=== PATIENT | male | born 1970 | race Caucasian/White ===

== ENCOUNTER 2022-12-11 19:13 | Emergency (ER) | payer BC, SELFPAY ==
--- NOTE | ~2022-12-11 | CT_ITS ---
EXAMINATION: CT abdomen pelvis wo con DATE: 12/11/2022 21:37 INDICATION: Eval kidney stone TECHNIQUE: Computed tomography (CT) of the abdomen and pelvis was performed without intravenous contr ast. Automated exposure control and iterative reconstruction technique were employed. The dose-length product was 644.94 mGy-cm. COMPARISON: None. FINDINGS: Lower thorax: Minimal bibasilar scar/atelectasis. Coronary artery calcifications. Liver: Enlarged. Biliary/Gallbladder: Gallbladder is normal. No bile duct dilation. Pancreas: No mass or duct dilation. Spleen: Normal. Adrenals:No mass. Kidneys: No calculi. No suspicious mass. Mild bilateral perinephric stranding, slightly greater on th e left. Mild left caliectasis, pelviectasis, and ureterectasis with mild periureteral stranding. GI tract: No small or large bowel dilation. Normal appendix. Diverticulosis without diverticulitis. Mesentery/Peritoneum: No ascites, mass, or free air. Retroperitoneum: No mass. Atherosclerotic abdominal aortic and/or arterial calcifications. Pelvis: Partially distended urinary bladder with wall thickening. Mild prostatomegaly and calcificati on. No distal ureteral or bladder calcifications detected. Soft Tissues: Soft tissues and body wall unremarkable. Bones: No acute osseous finding. IMPRESSION: 1. Hepatomegaly. 2. No CT evidence of nephrolithiasis. 3. Mild left perinephric and periureteral stranding, with mild left hydronephrosis. No obstructing ma ss or calcification detected. Consider ascending infection in the differential. 4. Bladder wall thickening, may be secondary to inadequate distention or cystitis. Reviewed, dictated and finalized at location K. IMPRESSION: 1. Hepatomegaly. 2. No CT evidence of nephrolithiasis. 3. Mild left perinephric and periureteral stranding, with mild left hydronephro sis. No obstructing mass or calcification detected. Consider ascending infectio n in the differential. 4. Bladder wall thickening, may be secondary to inadequate distention or cystit is.
[2022-12-11 19:16] VITALS: BP 145/76; PULSE 73; RESP 15; TEMP 36.6; O2SAT 100
--- NOTE | 2022-12-11 21:19 | ED.GENADULT ---
HPI - General Adult General Chief complaint: Back Pain/Injury Stated complaint: kidney stone? Time Seen by Provider: 12/11/22 20:04 History of Present Illness HPI narrative: This is a 52-year-old male presenting ED with a chief complaint of back pain x2 weeks. Patient says he has been having a pain in his left flank that radiates into his abdomen, crampy, 10 out 10 intensity and comes and goes. He has never experienced pain like this before there are no exacerbating relieving factors. He notes that his urine is T like and he has the urge to urinate but feels like he is not able to complete his void. He has had some diaphoresis and fevers at home. He was seen by his primary care physician is treating him for UTI. He is here to be evaluated for kidney stone. Related Data Allergies Allergy/AdvReac Type Severity Reaction Status Date / Time No Known Allergies Allergy Verified 12/11/22 19:18 [facility] Past Medical History Medical History (Updated 12/11/22 @ 23:19 by Cruz Anderson MD) Gout Pyelonephritis Exam Narrative: APPEARANCE: No apparent distress. Head: atraumatic. EYES: EOMI, NOSE: Atraumatic NECK: Trachea midline RESPIRATORY: No increased rate of breathing clear to auscultation CARDIOVASCULAR: RRR, ABDOMINAL: Abdomen is soft nontender no guarding rebound, no CVA tenderness MUSCULOSKELETAl: No obvious deformities NEURO: Alert. Moving 4/4 extremities SKIN:: Warm, dry. Normal color PSYCHIATRIC: Normal affect Course Vital Signs Vital signs: Vital Signs Temperature 98 F 12/11/22 19:16 Pulse Rate 73 12/11/22 19:16 Respiratory Rate 15 12/11/22 19:16 Blood Pressure 145/76 H 12/11/22 19:16 Pulse Oximetry 100 12/11/22 19:16 Oxygen Delivery Room Air 12/11/22 19:16 Temperature 98 F 12/11/22 19:16 Pulse Rate 73 12/11/22 19:16 Respiratory Rate 15 12/11/22 19:16 Blood Pressure 145/76 H 12/11/22 19:16 Pulse Oximetry 100 12/11/22 19:16 Oxygen Delivery Room Air 12/11/22 19:16 Medical Decision Making [facility] Narrative Medical decision making narrative: -Presentation: 52-year-old male presenting with a week and half of flank pain. He has had urinary symptoms and fevers/diaphoresis at home. He was seen his primary care physician is treating for UTI but he was sent here to be evaluated for kidney stones. 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 Metabolic panel normal. Urine indicative of infection. CT abdomen pelvis showed findings concerning for pyelonephritis but no kidney stones. Dx tests considered but not ordered: None -Procedures: none -Interventions: Toradol, Tylenol, 2 L normal saline, Cipro 500 mg -Shared decision making / Disposition: patient's workup is significant for pyelonephritis. He was fluid resuscitated and given pain control which improved his symptoms. He has been taking Cipro which is an appropriate antibiotic. I am going to extend the duration of his medications. Upon re-evaluation his vital signs are stable and he is well appearing. He is young with no significant medical comorbidities is good candidate for outpatient therapy. He will be given return precautions. Patient discharged with primary care follow-up -RX Cipro 500 mg bid x7 days, motrin, tylenol, oxycodone Vital Signs Vital Signs: Vital Signs Temperature 98 F 12/11/22 19:16 Pulse Rate 73 12/11/22 19:16 Respiratory Rate 15 12/11/22 19:16 Blood Pressure 145/76 H 12/11/22 19:16 Pulse Oximetry 100 12/11/22 19:16 Oxygen Delivery Room Air 12/11/22 19:16 Temperature 98 F 12/11/22 19:16 Pul
[2022-12-11 21:41] LABS: Appearance Urine Cloudy (Clear); Bacteria Urine None Seen /hpf; Bilirubin Urine Negative (Negative); Blood Urine 2+ (Negative); Color Urine Yellow (Yellow); Glucose Urine UA Negative (Negative); Ketones Urine Negative (Negative); Leukocyte Esterase Ur 2+ LEU/UL (Negative); Nitrate Urine Negative (Negative); Non Pathogenic Casts 0-2; Protein Urine 2+ mg/dL (Negative); Specific Grav Ur 1.009 (1.001-1.035); Squamous Epithelial Cell Urine None seen /hpf (Few); Urobilinogen Urine 0.2 mg/dL (<2.0); WBC Urine >100 /hpf; pH Urine 5.5 (5.0-9.0)
[2022-12-11 21:43] LABS: Add Urine Microscopic? YES
[2022-12-11] MEDS: KETOROLAC 15 MG/ML VIAL (*BKC) IV PUSH (21:46)
[2022-12-11] MEDS: SODIUM CHLORIDE 0.9% IV 2,000 ML 999 ML IV CONT (21:46)
[2022-12-11] MEDS: ACETAMINOPHEN 500 MG TABLET 1000 MG PO (21:46)
[2022-12-11 21:56] LABS: Basophils Absolute Auto 0.1 K/mm3 (0.0-0.1); Basophils Percent Auto 0.3 % (0.2-1.2); Eosinophils Absolute Auto 0.1 K/mm3 (0-0.3); Eosinophils Percent Auto 0.6 % (0-4.4); Hematocrit 41.8 % (42.0-52.0); Hemoglobin 13.6 g/dL (14.0-18.0); Immature Granulocyte Absolute 0.07 K/mm3 (0.00-0.031); Immature Granulocyte Percent A 0.5 % (0-0.5); Lymphocytes Absolute Auto 2.39 K/mm3 (0.9-3.2); Lymphocytes Percent Auto 15.8 % (18.3-44.2); Mean Corpuscular HGB Conc 32.5 g/dl (32-36); Mean Corpuscular Hemoglobin 28.2 pg (26-34); Mean Corpuscular Volume 86.5 fl (80-100); Mean Platelet Volume 9.1 fl (7.4-10.4); Monocytes Absolute Auto 0.8 K/mm3 (0.1-0.6); Neutrophils Absolute Auto 11.7 K/mm3 (1.3-6.7); Neutrophils Percent Auto 77.8 % (45.5-73.1); Platelet Count Result 336 k/mm3 (150-375); Red Blood Count 4.83 M/mm3 (4.6-6.20); Red Cell Distribution Width 13.5 % (11.5-14.5); White Blood Count 15.1 K/mm3 (4.5-10.0)
[2022-12-11 22:57] LABS: Alanine Aminotransferase 28 U/L (6-50); Albumin Level 3.4 g/dL (3.5-5.1); Alkaline Phosphatase 89 U/L (38-126); Anion Gap 6 mmol/L (8-16); Aspartate Amino Transferase 25 U/L (17-59); Bilirubin,Total 0.3 mg/dL (0.2-1.3); Blood Urea Nitrogen 12 mg/dL (9-20); Calcium 8.2 mg/dL (8.4-10.2); Carbon Dioxide 27 mmol/L (22-30); Chloride 106 mmol/L (98-107); Creatine Kinase 106 U/L (55-170); Estimated CRCL calculation 76 ml/min; Estimated Glomerular Filt Rate > 60; Glucose 105 mg/dL (65-110); Lipase 37 U/L (23-300); Potassium 3.4 mmol/L (3.4-5.0); Sodium 139 mmol/L (137-145)
[2022-12-11] MEDS: CIPROFLOXACIN 500 MG TAB PO (23:27)
== END 2022-12-11 23:40 | disposition home or self-care (01) ==
PROVIDERS: Emergency Provider Emergency Medicine; PCP Family Medicine Sports Medicine
DX: N10 Acute pyelonephritis (principal); M10.9 Gout, unspecified; D72.829 Elevated white blood cell count, unspecified
CPT/HCPCS: 36415; 74176; 80053; 81001; 82550; 83690; 85025; 87086; 96361; 96374; 99284; A9270; J1885; J7030

== ENCOUNTER 2023-06-09 14:31 | Inpatient (IN) | payer BC, SELFPAY ==
[2023-06-09] VITALS (31 sets, daily range): BP systolic 125–154; BP diastolic 75–93; PULSE 66–89; RESP 14–25; TEMP 36–37; O2SAT 94–100; BMI 30.6
--- NOTE | ~2023-06-09 | XR_ITS ---
EXAMINATION: XR chest 2V DATE: 06/09/2023 15:05 INDICATION: Chest pain. TECHNIQUE: Frontal and lateral views of the chest were obtained. COMPARISON: CT abdomen and pelvis 12/11/2022 FINDINGS: There is no pneumonia, pleural effusion, or pneumothorax. The heart size is normal. IMPRESSION: 1. No acute cardiopulmonary disease. Reviewed, dictated and finalized at location E. R SERVICE REPRESENTATIVE
--- NOTE | 2023-06-09 14:34 | ECG_ITS ---
Measurements Intervals [place] Rate: 78 P: 42 TX: 166 QRS: 42 QRSD: 105 T: 61 QT: 332 QTc: 380 Interpretive Statements SINUS RHYTHM NONSPECIFIC ST & T-WAVE ABNORMALITY NO PREVIOUS ECG AVAILABLE FOR COMPARISON Electronically Signed On 06-09-2023 15:06:10 MALARIOLOGIST by Estrada Iqbal M.D.
--- NOTE | 2023-06-09 14:37 | ED.CHESTPAIN ---
HPI - Chest Pain General Chief Complaint: Chest Pain Stated Complaint: chest pain with exertion Time Seen by Provider: 06/09/23 14:35 Source: patient Mode of arrival: ambulatory Limitations: no limitations History of Present Illness HPI narrative: Leighton is a 53-year-old male patient presenting to the ER today with complaints of chest pain over the last 2-3 days upon exertion. He reports when he is lying flat not do anything he does not have any chest pain. Rates the pain a pressure like sensation in the middle of his chest-states it feels like a brick hit him. Pain has been radiating into bilateral arms. Denies radiation into the jaw. He denies any associated shortness of breath, nausea, vomiting, diaphoresis. No cardiac history. He is a 1 pack-a-day cigarette smoker since he was a child. Related Data Home Medications Medication Instructions Recorded Confirmed No Home Medications 06/09/23 06/09/23 Allergies Allergy/AdvReac Type Severity Reaction Status Date / Time No Known Allergies Allergy Verified 06/09/23 14:38 Review of Systems Review of Systems: Pertinent positives per HPI. Patient denies any fever, chills, rash, headache, visual changes, dizziness, cough, runny nose, sore throat, shortness of breath,palpitations, nausea, vomiting, diarrhea, constipation, abdominal pain, or any urinary issues. [facility] Past Medical History Medical History Gout Pyelonephritis Comments At the time of my signature, I reviewed and agree with the nursing past medical, surgical, social, and family history. There is no relevant family history pertinent to the patient complaint. Exam Narrative: General: Well-developed, well nourished, in no apparent distress Head: Normocephalic, atraumatic. Cardio: Regular rate and rhythm, s1 and s2 normal, no murmur appreciated. Chest wall: Nontender to palpation, even rise and fall of the chest wall, no deformity Resp: Clear to auscultation bilaterally, no rhonchi, rales, wheezing or rubs. Extremities: No deformity, no edema, no cyanosis, capillary refill less than 2 seconds, peripheral pulses palpable and strong. Integumentary: [place], warm, and dry, intact without lesion, no rashes. Course Course Emergency Course: Portions of this record may have been created with voice recognition software. Vital Signs Vital signs: Vital signs reviewed MDM - Chest Pain MDM Narrative Medical decision making narrative: At the time of visit patient is resting comfortably on the exam table. Denies any chest pain currently as he is lying on the stretcher. EKG, labs, and chest x-ray completed, Patient appears to be nontoxic. EKG shows sinus rhythm with heart rate of 70 beats per minute with nonspecific ST-T wave changes. Chest x-ray is negative for any acute cardiopulmonary disease, labs show white blood cell count of 8.4 with an H&H of 13.5 and 42.4 platelet count is 276. PT INR and APTT 12., 0.9, 30.5 2nd with a D-dimer of 0.37. CMP unremarkable, initial troponin was elevated at 0.120. Lipase is normal. Repeat EKG was performed and shows no changes from previous EKG. Patient is denying any pain with resting on the stretcher this time. Contacted Dr. [id number] accepts patient for consult and would like to have the patient started on heparin drip. Heparin 4000 units IV push with heparin drip ordered per non-STEMI protocol. Contacted hospitalist and Elissa accepts patient for admission. Admission was discussed with patient and he agrees with admission. Patient to be NPO at MT for cath Differential Diagnosis Differential diagnosis: Likely stable angina, unstable angina pectoris, atypical chest pain, st elevation myocardial infarction, costochondritis and chest pain Discharge Plan Discharge Patient Disposition: Still a Patient Instructions: Antibiotic Form Prescriptions: No Action No Home Medications
[2023-06-09] MEDS: ASPIRIN 81 MG CHEWABLE TABLET 324 MG PO (14:52)
[2023-06-09 14:57] LABS: Basophils Percent Auto 0.5 % (0.2-1.2); Eosinophils Absolute Auto 0.1 K/mm3 (0-0.3); Eosinophils Percent Auto 1.5 % (0-4.4); Hematocrit 42.4 % (42.0-52.0); Hemoglobin 13.5 g/dL (14.0-18.0); Immature Granulocyte Absolute 0.04 K/mm3 (0.00-0.031); Immature Granulocyte Percent A 0.5 % (0-0.5); Lymphocytes Absolute Auto 2.34 K/mm3 (0.9-3.2); Lymphocytes Percent Auto 27.8 % (18.3-44.2); Mean Corpuscular HGB Conc 31.8 g/dl (32-36); Mean Corpuscular Hemoglobin 27.3 pg (26-34); Mean Corpuscular Volume 85.7 fl (80-100); Monocytes Absolute Auto 0.7 K/mm3 (0.1-0.6); Monocytes Percent Auto 8.4 % (2.6-8.5); Neutrophils Absolute Auto 5.2 K/mm3 (1.3-6.7); Neutrophils Percent Auto 61.3 % (45.5-73.1); Platelet Count Result 276 k/mm3 (150-375); Red Blood Count 4.95 M/mm3 (4.6-6.20); Red Cell Distribution Width 13.5 % (11.5-14.5); White Blood Count 8.4 K/mm3 (4.5-10.0)
[2023-06-09 15:05] LABS: INR 0.9; Prothrombin Time 12.7 Seconds (11.1-14.7)
[2023-06-09 15:06] LABS: Alanine Aminotransferase 19 U/L (6-50); Albumin Level 4.3 g/dL (3.5-5.1); Alkaline Phosphatase 96 U/L (38-126); Anion Gap 10 mmol/L (8-16); Aspartate Amino Transferase 22 U/L (17-59); Bilirubin,Total 0.3 mg/dL (0.2-1.3); Blood Urea Nitrogen 13 mg/dL (9-20); Calcium 9.4 mg/dL (8.4-10.2); Carbon Dioxide 25 mmol/L (22-30); Chloride 105 mmol/L (98-107); Estimated CRCL calculation 94 ml/min; Estimated Glomerular Filt Rate > 60; Glucose 95 mg/dL (65-110); Lipase 74 U/L (23-300); Partial Thromboplastin Time 30.5 SECONDS (22.3-36.8); Potassium 3.7 mmol/L (3.4-5.0); Sodium 140 mmol/L (137-145)
--- NOTE | 2023-06-09 15:22 | ECG_ITS ---
Measurements Intervals [place] Rate: 73 P: 44 SD: 169 QRS: 38 QRSD: 106 T: 50 QT: 331 QTc: 365 Interpretive Statements SINUS RHYTHM NONSPECIFIC ST & T-WAVE ABNORMALITY BORDERLINE ECG COMPARED TO ECG 06/09/2023 14:39:21 NO SIGNIFICANT CHANGES Electronically Signed On 06-10-2023 15:28:52 AUTOMATION TECH by Matthew Lopez M.D.
--- NOTE | 2023-06-09 15:24 | ECG_ITS ---
Measurements Intervals [place] Rate: 71 P: 45 MT: 169 QRS: 47 QRSD: 117 T: 10 QT: 362 QTc: 394 Interpretive Statements SINUS RHYTHM MODERATE INTRAVENTRICULAR CONDUCTION DELAY [110+ ms QRS DURATION] NONSPECIFIC ST & T-WAVE ABNORMALITY ABNORMAL ECG COMPARED TO ECG 06/09/2023 17:36:46 INTRAVENTRICULAR CONDUCTION DELAY NOW PRESENT T-WAVE ABNORMALITY NOW PRESENT Electronically Signed On 06-10-2023 15:37:38 PRIVATE WATCHMAN by Matthew Lopez M.D.
[2023-06-09 15:29] LABS: D Dimer 0.37 ug/mL (<0.48)
[2023-06-09 16:06] LABS: NT Pro B Type Natriuretic Pept 114 pg/mL (19.9-100)
[2023-06-09] MEDS: HEPARIN SOD/D5W 100 UNITS/ML 25,000 UNITS/250 ML BAG 12.31 UNITS IV CONT (16:41)
[2023-06-09] MEDS: HEPARIN SODIUM 5,000 UNITS/ML VIAL 4000 UNITS IV PUSH ×2 (16:41→23:52)
[2023-06-09] MEDS: HEPARIN SOD/D5W 100 UNITS/ML 25,000 UNITS/250 ML BAG 10 UNITS IV CONT (17:01)
--- NOTE | 2023-06-09 17:07 | PM.CNCAR ---
Assessment and Plan Assessment and plan (1) Non-ST elevation CT (NSTEMI): Code(s): I21.4 - Non-ST elevation (NSTEMI) myocardial infarction Status: Acute Assessment and Plan: First Troponin .12. Got aspirin and start heparin drip in ED. Start Atorvastatin 80 mg daily and Metoprolol Tartate 12.5 mg BID. Obtain echo in AM. Obtain Lipid panel. Trend troponin. Discuss risks/benefits/alternative to LHC and he is agreeable to it. Will consult HCG for procedure in AM. Keep NPO after midnight for LHC. (2) Tobacco abuse: Code(s): Z72.0 - Tobacco use Status: Acute Assessment and Plan: Counseled regarding smoking cessation. History of Present Illness History of Present Illness Consult date/time: 06/09/23 17:07 Reason For Visit: chest pain with exertion Narrative: 53 yr old man presents to ER with chest pain. He has a history of smoking. Reports that in last 3 days he noted exertional chest pressure and sob after walking 1/2 block or less when normally he can walk much more. While lying in bed he has no chest pains. He smokes 1 ppd. Denies orthopnea, PND, edema, dizziness, palpitations. Review of Systems Review of Systems: All systems reviewed & are unremarkable except as noted in HPI and below Constitutional: Constitutional: Reports as per HPI, Denies chills and Denies fever(s) Cardiovascular: Cardiovascular: Reports as per HPI, Reports chest pain and Denies irregular heart rhythm Respiratory: Respiratory: Reports as per HPI and Reports dyspnea Gastrointestinal: Gastrointestinal: Reports as per HPI and Denies abdominal pain Genitourinary: Genitourinary: Reports as per HPI and Denies dysuria Musculoskeletal: Musculoskeletal: Reports as per HPI Neurologic: Reports as per HPI, Denies dizziness and Denies syncope [facility] Past Medical History Medical History Gout Pyelonephritis Meds Home Medications and Allergies Home Medications Medication Instructions Recorded Confirmed Type No Home Medications 06/09/23 06/09/23 History Allergies Allergy/AdvReac Type Severity Reaction Status Date / Time No Known Allergies Allergy Verified 06/09/23 14:38 Vital Signs Vital Signs - 24 hr 06/09/23 14:35 06/09/23 14:48 06/09/23 15:04 Temperature 98.6 F Pulse Rate 89 78 72 Respiratory Rate 20 20 14 Blood Pressure 154/87 H Pulse Oximetry 98 98 06/09/23 15:05 06/09/23 15:16 06/09/23 16:52 Temperature Pulse Rate 78 79 81 Respiratory Rate 18 21 H Blood Pressure 135/93 H 144/87 H Pulse Oximetry 96 96 06/09/23 15:21 06/09/23 15:33 06/09/23 15:55 Temperature Pulse Rate 81 75 79 Respiratory Rate 21 H 23 H 21 H Blood Pressure Pulse Oximetry 94 96 94 06/09/23 16:01 06/09/23 16:02 06/09/23 16:15 Temperature Pulse Rate 82 87 85 Respiratory Rate 19 24 H 24 H Blood Pressure 147/81 H Pulse Oximetry 96 95 96 06/09/23 16:16 Temperature Pulse Rate 81 Respiratory Rate 15 Blood Pressure 125/82 Pulse Oximetry 95 Exam Const: General: cooperative, healthy appearing and comfortable Resp: Auscultation: clear to auscultation bilaterally, no crackles, no rales, no rhonchi and no wheezes Cardio: Rate: regular rate Rhythm: regular rhythm Heart sounds: no murmurs Peripheral pulses: dorsalis pedis present GI: GI Palp: No abdominal tenderness and Yes Soft to palpation Neuro: General: oriented to person, oriented to place and oriented to time Extrem: Right lower extremity: no edema Left lower extremity: no edema Results Labs and Meds 06/09/23 14:47 06/09/23 14:47 Lab results: Cardiac Enzymes 06/09/23 Range/Units 14:47 AST 22 (17-59) U/L Troponin I 0.120 H* (0.000-0.034) ng/mL Coagulation 06/09/23 Range/Units 14:47 PT 12.7 (11.1-14.7) Seconds APTT 30.5 (22.3-36.8) SECONDS CBC 06/09/23 Range/Units 14:47 W
--- NOTE | 2023-06-09 17:46 | ECG_ITS ---
Measurements Intervals [place] Rate: 67 P: 47 OR: 175 QRS: 40 QRSD: 106 T: 48 QT: 345 QTc: 365 Interpretive Statements SINUS RHYTHM NONSPECIFIC ST ABNORMALITY BORDERLINE ECG COMPARED TO ECG 06/09/2023 15:29:17 NO SIGNIFICANT CHANGE Electronically Signed On 06-10-2023 15:33:15 [employer] BI DEVELOPER by Matthew Lopez M.D.
[2023-06-09 17:59] LABS: Troponin I 0.125 ng/mL (0.000-0.034)
--- NOTE | 2023-06-09 18:06 | PM.IMHP ---
H&P: HPI History of Present Illness Date/Time: 06/09/23 18:06 Chief Complaint: Chest Pain Narrative: 53 y/o M presented here with chest pain with PMH of gout and dyslipidemia. Patient reports for the past 3 days that he has been experiencing midsternal chest pain with exertion. Chest pain resolves with rest. Describes the pain as midsternal, 8/10, with radiation down bilateral arms. No associated nausea, vomiting, diaphoresis, shortness of breath. + Palpitations with chest pain, also resolves with rest. States he has had no previous episodes similar to this pain. He did not take any home medications to attempt to resolve the discomfort. States he does have a family history of early heart disease, his father at 40 due to a heart attack. He currently works at [employer]. currently smokes 1 pack per day for the past 32 years, only occasional alcohol use. No other concerns or complaints. Review of Systems Review of Systems: All systems reviewed & are unremarkable except as noted in HPI and below PMFSH Past Medical History Medical History Dyslipidemia Gout Pyelonephritis Surgical History Surgical History No history of previous surgery Family History Family History Father Acute myocardial infarction - due to MT at age 40 Social History Social History Smoking packs per day: 1 Smoking cigarettes per day: 20.0 Years smoked: 32 Smoking pack-years: 32.00 Smoking status: Current every day smoker Tobacco type: cigarettes Alcohol intake: current Alcohol use details: very occasional, 3-4 times per year. Substance use: former Substance use type: marijuana Meds Home Medications and Allergies Home Medications Medication Instructions Recorded Confirmed Type No Home Medications 06/09/23 06/09/23 History Allergies Allergy/AdvReac Type Severity Reaction Status Date / Time No Known Allergies Allergy Verified 06/09/23 14:38 Vital Signs Vital Signs - 24 hr 06/09/23 14:35 06/09/23 14:48 06/09/23 15:04 Temperature 98.6 F Pulse Rate 89 78 72 Respiratory Rate 20 20 14 Blood Pressure 154/87 H Pulse Oximetry 98 98 06/09/23 15:05 06/09/23 15:16 06/09/23 16:52 Temperature Pulse Rate 78 79 81 Respiratory Rate 18 21 H Blood Pressure 135/93 H 144/87 H Pulse Oximetry 96 96 06/09/23 15:21 06/09/23 15:33 06/09/23 15:55 Temperature Pulse Rate 81 75 79 Respiratory Rate 21 H 23 H 21 H Blood Pressure Pulse Oximetry 94 96 94 06/09/23 16:01 06/09/23 16:02 06/09/23 16:15 Temperature Pulse Rate 82 87 85 Respiratory Rate 19 24 H 24 H Blood Pressure 147/81 H Pulse Oximetry 96 95 96 06/09/23 16:16 Temperature Pulse Rate 81 Respiratory Rate 15 Blood Pressure 125/82 Pulse Oximetry 95 Exam Const: General: comfortable and no acute distress HENMT: Face/Nose/Sinus: Normal nares present Mouth: Yes moist mucous membranes Eyes: General: appearance normal, both eyes and all related structures Sclera: sclerae normal Pupils: Equal, round and reactive pupils present EOM: EOMs intact bilaterally Resp: Effort & Inspection: normal respiratory effort Auscultation: clear to auscultation bilaterally Cardio: Rate: regular rate Rhythm: regular rhythm Other: S1-S2 present without murmur, rub, ectopy Skin: General skin exam: normal color and no rashes or lesions noted Wounds: no wounds Neuro: Speech: normal speech Motor exam (neuro): 5/5 motor strength present throughout Sensory Exam: normal sensation Other: A/Ox4 Extrem: General: normal to inspection Psych: Mental Status: mental status grossly normal Affect: normal affect Other: Good insight and judgment, pleasant.
[2023-06-09] MEDS: NICOTINE (*PBKC) 21 MG PATCH 1 PATCH TRANSDERM (18:57)
--- NOTE | 2023-06-09 19:39 | PC.NURSE ---
Report received from RACHAEL Chamberlain. Pt resting quietly per cart in nad. Heparin gtt infusing. Discussed night plan and NPO status. Verbalized understanding. No needs at this time.
[2023-06-09 21:35] LABS: Troponin I 0.154 ng/mL (0.000-0.034)
--- NOTE | 2023-06-09 21:49 | ADMGEN ---
This patient, Leighton Dior, was admitted to IMU Room 209-01. Patient/family oriented to hospital policies and general routines including ID bracelet, bed and alarms, visiting hours, pain management, procedures, bathroom and other care routines, personal items, smoking policy, room service/diet, and visiting hours. Information on how to activate the Rapid Response Team has been discussed. Patient/Family are encouraged to report perceived risks to care and to ask questions if they do not understand what they are told or what they should do.
[2023-06-09 23:09] LABS: Basophils Percent Auto 0.4 % (0.2-1.2); Eosinophils Absolute Auto 0.2 K/mm3 (0-0.3); Eosinophils Percent Auto 2.4 % (0-4.4); Hematocrit 40.1 % (42.0-52.0); Hemoglobin 13.3 g/dL (14.0-18.0); Immature Granulocyte Absolute 0.02 K/mm3 (0.00-0.031); Immature Granulocyte Percent A 0.2 % (0-0.5); Lymphocytes Absolute Auto 3.19 K/mm3 (0.9-3.2); Lymphocytes Percent Auto 37.7 % (18.3-44.2); Mean Corpuscular HGB Conc 33.2 g/dl (32-36); Mean Corpuscular Hemoglobin 27.9 pg (26-34); Mean Corpuscular Volume 84.2 fl (80-100); Mean Platelet Volume 10.3 fl (7.4-10.4); Monocytes Absolute Auto 0.8 K/mm3 (0.1-0.6); Monocytes Percent Auto 9.3 % (2.6-8.5); Neutrophils Absolute Auto 4.2 K/mm3 (1.3-6.7); Platelet Count Result 242 k/mm3 (150-375); Red Blood Count 4.76 M/mm3 (4.6-6.20); Red Cell Distribution Width 13.3 % (11.5-14.5); White Blood Count 8.5 K/mm3 (4.5-10.0)
[2023-06-09] MEDS: ATORVASTATIN 40 MG TABLET 80 MG PO (23:13)
[2023-06-09] MEDS: METOPROLOL TARTRATE 12.5 MG TABLET PO (23:13)
[2023-06-09 23:20] LABS: INR 0.9; Prothrombin Time 12.8 Seconds (11.1-14.7)
[2023-06-09 23:44] LABS: Partial Thromboplastin Time 41.3 SECONDS (22.3-36.8)
[2023-06-10] VITALS (31 sets, daily range): BP systolic 107–148; BP diastolic 63–92; PULSE 64–95; RESP 12–20; TEMP 36.2–37.2; O2SAT 94–100
--- NOTE | 2023-06-10 | ECHO_ITS ---
Patient Info Name: Leighton Dior Age: 53 years : 1970 Gender: Male Ht: 71 in Wt: 220 lbs BSA: 2.26 m2 HR: 76 bpm BP: 127 / 74 mmHg Heart Rhythm: Sinus Rhythm Technical Quality: Good Exam Date: 06/10/2023 9:42 AM Exam Location: Echo Lab Patient Status: Inpatient Admit Date: 06/09/2023 Staff Ordering Physician: Syd Kee DO Travel Coordinator: Nilson Martínez RDCS Attending Provider: Maribel Stevens MD Referring Physician: Chilango SIMPSON; Exam Type: CA echo doppler color flow Study Info Indications - NSTEMI Complete two-dimensional, color flow and Doppler transthoracic echocardiogram is performed. Summary 1. Complete two-dimensional, color flow and Doppler transthoracic echocardiogram is performed. 2. Left ventricular chamber dimension is normal. 3. Left ventricular systolic function is normal, estimated at 60-65%. 4. The left ventricular diastolic function is normal. 5. E/e' 8 is minimally elevated. 6. There is trace mitral valve regurgitation. 7. There is trace tricuspid valve regurgitation. 8. No pulmonary hypertension, estimated pulmonary arterial systolic pressure is 22 mmHg. Left Ventricle E/e' 8 is minimally elevated. Left ventricular chamber dimension is normal. Left ventricular systolic function is normal, estimated at 60-65%. The left ventricular diastolic function is normal. Right Ventricle Right ventricular systolic function is normal and with normal TAPSE 2.2 cm. Right ventricular chamber dimension is normal. Left Atria Left atrial chamber dimension is normal. Right Atria Right atrial chamber dimension is normal. Aortic Valve The aortic valve is trileaflet. There is no aortic valve stenosis. There is no aortic valve regurgitation. Pulmonic Valve There is no pulmonic regurgitation. Mitral Valve There is no mitral valve stenosis. There is trace mitral valve regurgitation. Tricuspid Valve There is trace tricuspid valve regurgitation. No pulmonary hypertension, estimated pulmonary arterial systolic pressure is 22 mmHg. Pericardium/Pleural There is no pericardial effusion. Inferior Vena Cava Normal inferior vena cava with >50% collapse upon inspiration consistent with normal right atrial pressure, 5 mmHg. Aorta The aortic root size at the sinus of Valsalva is normal. Left Ventricular Outflow Tract Name Value Normal LVOT 2D LVOT Diameter 2.0 cm LVOT Doppler LVOT Peak Gradient 4 mmHg LVOT Mean Gradient 2 mmHg LVOT VTI 26 cm LVOT VTI/AV VTI Ratio 1.1 LVOT Stroke Volume 79 ml LVOT CO 4.5 l/min LVOT CI 2.0 l/min/m2 Pulmonic Valve Name Value Normal RVOT Doppler RVOT Peak Gradient 2 mmHg PV Doppler
[2023-06-10 06:26] LABS: Basophils Percent Auto 0.2 % (0.2-1.2); Eosinophils Absolute Auto 0.2 K/mm3 (0-0.3); Eosinophils Percent Auto 2.7 % (0-4.4); Hematocrit 41.7 % (42.0-52.0); Hemoglobin 13.7 g/dL (14.0-18.0); Immature Granulocyte Absolute 0.01 K/mm3 (0.00-0.031); Immature Granulocyte Percent A 0.1 % (0-0.5); Lymphocytes Absolute Auto 2.66 K/mm3 (0.9-3.2); Lymphocytes Percent Auto 32.9 % (18.3-44.2); Mean Corpuscular HGB Conc 32.9 g/dl (32-36); Mean Corpuscular Hemoglobin 27.9 pg (26-34); Mean Corpuscular Volume 84.9 fl (80-100); Mean Platelet Volume 9.9 fl (7.4-10.4); Monocytes Absolute Auto 0.8 K/mm3 (0.1-0.6); Monocytes Percent Auto 9.8 % (2.6-8.5); Neutrophils Absolute Auto 4.4 K/mm3 (1.3-6.7); Neutrophils Percent Auto 54.3 % (45.5-73.1); Platelet Count Result 262 k/mm3 (150-375); Red Blood Count 4.91 M/mm3 (4.6-6.20); Red Cell Distribution Width 13.3 % (11.5-14.5); White Blood Count 8.1 K/mm3 (4.5-10.0)
[2023-06-10 06:27] LABS: Alanine Aminotransferase 17 U/L (6-50); Albumin Level 4.1 g/dL (3.5-5.1); Alkaline Phosphatase 113 U/L (38-126); Anion Gap 8 mmol/L (8-16); Aspartate Amino Transferase 23 U/L (17-59); Bilirubin,Total 0.4 mg/dL (0.2-1.3); Blood Urea Nitrogen 12 mg/dL (9-20); Calcium 9.2 mg/dL (8.4-10.2); Carbon Dioxide 26 mmol/L (22-30); Chloride 105 mmol/L (98-107); Cholesterol 224 mg/dL (0-200); Estimated CRCL calculation 102 ml/min; Estimated Glomerular Filt Rate > 60; Glucose 99 mg/dL (65-110); HDL Direct 34 mg/dL; Potassium 3.7 mmol/L (3.4-5.0); Sodium 139 mmol/L (137-145); Triglycerides 428 mg/dL (<150)
[2023-06-10 06:34] LABS: Partial Thromboplastin Time 57.4 SECONDS (22.3-36.8)
[2023-06-10 06:38] LABS: LDL Cholesterol Direct 124 mg/dL
[2023-06-10] MEDS: HEPARIN SODIUM 5,000 UNITS/ML VIAL 3500 UNITS IV PUSH (06:58)
[2023-06-10 07:23] LABS: Troponin I 0.134 ng/mL (0.000-0.034)
--- NOTE | 2023-06-10 07:54 | PM.PNCARD ---
Progress Note: A&P Assessment and Plan (1) Non-ST elevation [place] (NSTEMI): Code(s): I21.4 - Non-ST elevation (NSTEMI) myocardial infarction Status: Acute Assessment and Plan: Troponin peaked at 0.154. Got aspirin and start heparin drip in ED. Started Atorvastatin 80 mg daily and Metoprolol Tartate 12.5 mg BID. Obtain echo today. Discuss risks/benefits/alternative to LHC and he is agreeable to it. Will consult HCG for procedure. Keep NPO for LHC. (2) Tobacco abuse: Code(s): Z72.0 - Tobacco use Status: Acute Assessment and Plan: Counseled regarding smoking cessation. (3) Dyslipidemia: Code(s): E78.5 - Hyperlipidemia, unspecified Status: Acute Assessment and Plan: Started Atorvastatin 80 mg daily. Subjective Date/time seen: 06/10/23 07:54 Interval history: Denies chest pain while resting in bed. No sob. Exam Const: General: cooperative, healthy appearing and comfortable Orientation/consciousness: oriented to person, oriented to place and oriented to time Resp: Auscultation: clear to auscultation bilaterally, no crackles, no rales, no rhonchi and no wheezes Cardio: Rate: regular rate Rhythm: regular rhythm Heart sounds: no murmurs Peripheral pulses: dorsalis pedis present Neuro: General: oriented to person, oriented to place and oriented to time Extrem: Right lower extremity: no edema Left lower extremity: no edema Objective Data Vital Signs Vital Signs: Vital Signs - 24 hr 06/09/23 14:35 06/09/23 14:48 06/09/23 15:04 Temperature 98.6 F Pulse Rate 89 78 72 Respiratory Rate 20 20 14 Blood Pressure 154/87 H Pulse Oximetry 98 98 Oxygen Delivery 06/09/23 15:05 06/09/23 15:16 06/09/23 16:52 Temperature Pulse Rate 78 79 81 Respiratory Rate 18 21 H Blood Pressure 135/93 H 144/87 H Pulse Oximetry 96 96 Oxygen Delivery 06/09/23 15:21 06/09/23 15:33 06/09/23 15:55 Temperature Pulse Rate 81 75 79 Respiratory Rate 21 H 23 H 21 H Blood Pressure Pulse Oximetry 94 96 94 Oxygen Delivery 06/09/23 16:01 06/09/23 16:02 06/09/23 16:15 Temperature Pulse Rate 82 87 85 Respiratory Rate 19 24 H 24 H Blood Pressure 147/81 H Pulse Oximetry 96 95 96 Oxygen Delivery 06/09/23 16:16 06/09/23 16:17 06/09/23 17:07 Temperature Pulse Rate 81 82 81 Respiratory Rate 15 22 H 20 Blood Pressure 125/82 Pulse Oximetry 95 97 95 Oxygen Delivery 06/09/23 17:16 06/09/23 17:25 06/09/23 17:30 Temperature Pulse Rate 69 74 80 Respiratory Rate 19 21 H 21 H Blood Pressure 140/75 Pulse Oximetry 97 99 99 Oxygen Delivery 06/09/23 17:55 06/09/23 18:12 06/09/23 18:15 Temperature Pulse Rate 77 83 83 Respiratory Rate 17 21 H 18 Blood Pressure Pulse Oximetry 96 97 95 Oxygen Delivery 06/09/23 18:30 06/09/23 18:43 06/09/23 18:45 Temperature Pulse Rate 74 66 68 Respiratory Rate 18 19 25 H Blood Pressure 140/93 H Pulse Oximetry 96 97 97 Oxygen Delivery 06/09/23 19:33 06/09/23 19:46 06/09/23 19:47 Temperature Pulse Rate 67 72 72 Respiratory Rate 23 H 22 H 15 Blood Pressure 131/92 H Pulse Oximetry 96 95 95 Oxygen Delivery 06/09/23 21:20 06/09/23 23:13 06/09/23 22:00 Temperature 97.5 F L Pulse Rate 87 78 78 Respiratory Rate 20 Blood Pressure 153/85 H Pulse Oximetry 100 Oxygen Delivery 06/09/23 22:00 06/09/23 22:00 06/09/23 23:46 Temperature 96.8 F L Pulse Rate 78 77 Respiratory Rate 20 Blood Pressure 139/77 Pulse Oximetry 98 Oxygen Delivery Room Air 06/10/23 00:00 06/10/23 00:00 06/10/23 02:00 Temperature Pulse Rate 80 80 78 Respiratory Rate 20 Blood Pressure Pulse Oximetry 98 Oxygen Delivery Room Air 06/10/23 04:00 06/10/23 04:00 06/10/23 04:54 Temperature 97.2 F L Pulse Rate 74 74 79 Respiratory Rate 20 16 Blood Pressure 127/74 Pulse Oximetry 98 96 Oxygen Delivery Room Air 06/10/23 05:5
[2023-06-10] MEDS: NICOTINE (*PBKC) 21 MG PATCH 1 PATCH TRANSDERM (08:32)
[2023-06-10] MEDS: ASPIRIN 81 MG ENTERIC TABLET PO (08:32)
[2023-06-10] MEDS: METOPROLOL TARTRATE 12.5 MG TABLET PO ×2 (08:32→20:51)
--- NOTE | 2023-06-10 09:38 | PM.IMPN ---
Progress Note: A&P Assessment and Plan (1) Tobacco abuse: Code(s): Z72.0 - Tobacco use Status: Acute (2) Non-ST elevation [place] (NSTEMI): Code(s): I21.4 - Non-ST elevation (NSTEMI) myocardial infarction Status: Acute Plan pt is NPO. awaiting heart cath, cardiology to see. per Dr. Kee's consultation, cont asa, metoprolol, lipitor. The patient is amenable to quitting tobacco. He quit for 2 years at one point successfully with Chantix. He has nicotine patch currently and wants to try with that. full code . heparin gtt. Subjective Date/time seen: 06/10/23 09:38 Interval history: naoe. pt rests comfortably in bed. he reports, 20 hours tobacco free and wants to quit. otherwise no comoplaints. Review of Systems Review of Systems: All systems reviewed & are unremarkable except as noted in HPI and below Exam Const: General: comfortable and no acute distress Eyes: Pupils: Equal, round and reactive pupils present Neck: Neck: supple Resp: Effort & Inspection: normal respiratory effort Auscultation: clear to auscultation bilaterally, no crackles, no rales and no rhonchi Cardio: Rate: regular rate Rhythm: regular rhythm Heart sounds: no gallops, no murmurs and no rubs Extrem: General: no edema Objective Data Vital Signs Vital Signs: Vital Signs - 24 hr 06/09/23 14:35 06/09/23 14:48 06/09/23 15:04 Temperature 98.6 F Pulse Rate 89 78 72 Respiratory Rate 20 20 14 Blood Pressure 154/87 H Pulse Oximetry 98 98 Oxygen Delivery 06/09/23 15:05 06/09/23 15:16 06/09/23 16:52 Temperature Pulse Rate 78 79 81 Respiratory Rate 18 21 H Blood Pressure 135/93 H 144/87 H Pulse Oximetry 96 96 Oxygen Delivery 06/09/23 15:21 06/09/23 15:33 06/09/23 15:55 Temperature Pulse Rate 81 75 79 Respiratory Rate 21 H 23 H 21 H Blood Pressure Pulse Oximetry 94 96 94 Oxygen Delivery 06/09/23 16:01 06/09/23 16:02 06/09/23 16:15 Temperature Pulse Rate 82 87 85 Respiratory Rate 19 24 H 24 H Blood Pressure 147/81 H Pulse Oximetry 96 95 96 Oxygen Delivery 06/09/23 16:16 06/09/23 16:17 06/09/23 17:07 Temperature Pulse Rate 81 82 81 Respiratory Rate 15 22 H 20 Blood Pressure 125/82 Pulse Oximetry 95 97 95 Oxygen Delivery 06/09/23 17:16 06/09/23 17:25 06/09/23 17:30 Temperature Pulse Rate 69 74 80 Respiratory Rate 19 21 H 21 H Blood Pressure 140/75 Pulse Oximetry 97 99 99 Oxygen Delivery 06/09/23 17:55 06/09/23 18:12 06/09/23 18:15 Temperature Pulse Rate 77 83 83 Respiratory Rate 17 21 H 18 Blood Pressure Pulse Oximetry 96 97 95 Oxygen Delivery 06/09/23 18:30 06/09/23 18:43 06/09/23 18:45 Temperature Pulse Rate 74 66 68 Respiratory Rate 18 19 25 H Blood Pressure 140/93 H Pulse Oximetry 96 97 97 Oxygen Delivery 06/09/23 19:33 06/09/23 19:46 06/09/23 19:47 Temperature Pulse Rate 67 72 72 Respiratory Rate 23 H 22 H 15 Blood Pressure 131/92 H Pulse Oximetry 96 95 95 Oxygen Delivery 06/09/23 21:20 06/09/23 23:13 06/09/23 22:00 Temperature 97.5 F L Pulse Rate 87 78 78 Respiratory Rate 20 Blood Pressure 153/85 H Pulse Oximetry 100 Oxygen Delivery 06/09/23 22:00 06/09/23 22:00 06/09/23 23:46 Temperature 96.8 F L Pulse Rate 78 77 Respiratory Rate 20 Blood Pressure 139/77 Pulse Oximetry 98 Oxygen Delivery Room Air 06/10/23 00:00 06/10/23 00:00 06/10/23 02:00 Temperature Pulse Rate 80 80 78 Respiratory Rate 20 Blood Pressure Pulse Oximetry 98 Oxygen Delivery Room Air 06/10/23 04:00 06/10/23 04:00 06/10/23 04:54 Temperature 97.2 F L Pulse Rate 74 74 79 Respiratory Rate 20 16 Blood Pressure 127/74 Pulse Oximetry 98 96 Oxygen Delivery Room Air 06/10/23 05:53 06/10/23 08:00 06/10/23 08:32 Temperature 97.9 F Pulse Rate 76 74 74 Respiratory Rate 14 Blood Pressure 130/81 Pulse Oximetry 98 Oxygen Delivery
--- NOTE | 2023-06-10 11:13 | PM.CNCAR ---
Assessment and Plan Assessment and plan (1) Non-ST elevation [place] (NSTEMI): Code(s): I21.4 - Non-ST elevation (NSTEMI) myocardial infarction Status: Acute Assessment and Plan: Discussed cardiac catheterization with the patient, including indications for cath, procedure details, risks vs benefits, alternative management options, etc. Patient is agreeable to proceed with cath. Will plan for cardiac catheterization today. Patient to remain NPO for cath. Continue Heparin drip, ASA, statin, beta edgar. Further recommendations/plan pending results of cardiac cath. (2) Tobacco abuse: Code(s): Z72.0 - Tobacco use Status: Acute Assessment and Plan: Counseled on cessation (3) Dyslipidemia: Code(s): E78.5 - Hyperlipidemia, unspecified Status: Acute Assessment and Plan: High intensity statin has been started History of Present Illness History of Present Illness Consult date/time: 06/10/23 11:13 Requesting physician: Syd Kee DO Consult reason: Other ([facility]) Reason For Visit: NSTEMI Narrative: We are consulted by Dr. Kee for a [facility] for NSTEMI. This is a 53 year old male with tobacco use who presented to [place] ER on 06/09 for chest pain. He has been having exertional chest pain and shortness of breath for the past few days. No pain at rest. Troponins are 0.120 / 0.125 / 0.154 / 0.134. CXR without acute findings. EKGs with sinus rhythm with nonspecific STTW abnormality. Echocardiogram ordered and is pending at this time. Has been started on ASA, Metoprolol, Atorvastatin, and Heparin drip. Review of Systems Review of Systems: All systems reviewed & are unremarkable except as noted in HPI and below (HPI) [facility] Past Medical History Medical History Dyslipidemia Gout Pyelonephritis Surgical History Surgical History No history of previous surgery Family History Family History Father Acute myocardial infarction - due to DE at age 40 Social History Social History Smoking packs per day: 1 Smoking cigarettes per day: 20.0 Years smoked: 30 Smoking pack-years: 30.00 Smoking status: Current every day smoker Tobacco type: cigarettes Alcohol intake: never Alcohol use details: very occasional, 3-4 times per year. Substance use: never Substance use type: does not use Do You Feel Safe in your Home?: Yes Lack of Transportation: No Lack of Food: Never True Current Housing: I Have Housing Concerned About Future Housing: No Difficulty Paying Gas/Electric Bills: No Difficulty Paying for Meds: No Currently Unemployed: No Education: Bachelor's Degree Difficulty w/ Childcare or Family Care: No Spiritual care concerns: No Meds Home Medications and Allergies Home Medications Medication Instructions Recorded Confirmed Type No Home Medications 06/09/23 06/09/23 History Allergies Allergy/AdvReac Type Severity Reaction Status Date / Time No Known Allergies Allergy Verified 06/09/23 14:38 Vital Signs Vital Signs - 24 hr 06/09/23 14:35 06/09/23 14:48 06/09/23 15:04 Temperature 37.0 C Pulse Rate 89 78 72 Respiratory Rate 20 20 14 Blood Pressure 154/87 H Pulse Oximetry 98 98 Oxygen Delivery 06/09/23 15:05 06/09/23 15:16 06/09/23 16:52 Temperature Pulse Rate 78 79 81 Respiratory Rate 18 21 H Blood Pressure 135/93 H 144/87 H Pulse Oximetry 96 96 Oxygen Delivery 06/09/23 15:21 06/09/23 15:33 06/09/23 15:55 Temperature Pulse Rate 81 75 79 Respiratory Rate 21 H 23 H 21 H Blood Pressure Pulse Oximetry 94 96 94 Oxygen Delivery 06/09/23 16:01 06/09/23 16:02 06/09/23 16:15 Temperature Pulse Rate 82 87 85 Respiratory Rate 19 24 H 24 H Blood Pressure 147/81
--- NOTE | 2023-06-10 11:19 | WPDMODSED ---
Moderate Sedation Note-Pt Data Patient Data Diagnosis: NSTEMI Present Complaint: NSTEMI Procedure to be performed/Plan: Coronary angiography, left heart cath, +/- PCI Allergies Allergy/AdvReac Type Severity Reaction Status Date / Time No Known Allergies Allergy Verified 06/09/23 14:38 Home Medications Medication Instructions Recorded Confirmed Type No Home Medications 06/09/23 06/09/23 History Current Medications: Active Medications Aspirin (Aspirin 81 Mg Enteric Tablet) 81 mg PO QAM [facility] Last Admin: 06/10/23 08:32 Dose: 81 mg Atorvastatin Calcium (Atorvastatin 40 Mg Tablet) 80 mg PO QHS [facility] Last Admin: 06/09/23 23:13 Dose: 80 mg Heparin Sodium (Porcine) (Heparin Sodium 5,000 Units/Ml Vial) 4,000 units IV PUSH PRN PRN PRN Reason: aPTT less than 55 seconds Last Admin: 06/09/23 23:52 Dose: 4,000 units Heparin Sodium (Porcine) (Heparin Sodium 5,000 Units/Ml Vial) 3,500 units IV PUSH PRN PRN PRN Reason: aPTT 55 - 70 seconds Last Admin: 06/10/23 06:58 Dose: 3,500 units Metoprolol Tartrate (Metoprolol Tartrate 12.5 Mg Tablet) 12.5 mg PO Q12HR [facility] Last Admin: 06/10/23 08:32 Dose: 12.5 mg Nicotine (Nicotine (*Pbkc) 21 Mg Patch) 1 patch TRANSDERM DAILY [facility] Last Admin: 06/10/23 08:32 Dose: 1 patch Perflutren Lipid Microsphere (Perflutren Lipid Microspheres 1.5 Ml Vial Diluted To 10 Ml Total Volume) 0 ml IV PUSH ONCE PRN; Protocol PRN Reason: adequate visualization Stop: 06/12/23 17:14 Sedation/Anesthesia: No previous sedation/anesthesia problems (including family history). [facility] Past Medical History Medical History Dyslipidemia Gout Pyelonephritis Surgical History Surgical History No history of previous surgery Family History Family History Father Acute myocardial infarction - due to MS at age 40 Social History Social History (Reviewed 06/10/23 @ 11:19 by MARGAUX Ardon Smoking packs per day: 1 Smoking cigarettes per day: 20.0 Years smoked: 30 Smoking pack-years: 30.00 Smoking status: Current every day smoker Tobacco type: cigarettes Alcohol intake: never Alcohol use details: very occasional, 3-4 times per year. Substance use: never Substance use type: does not use Do You Feel Safe in your Home?: Yes Lack of Transportation: No Lack of Food: Never True Current Housing: I Have Housing Concerned About Future Housing: No Difficulty Paying Gas/Electric Bills: No Difficulty Paying for Meds: No Currently Unemployed: No Education: Bachelor's Degree Difficulty w/ Childcare or Family Care: No Spiritual care concerns: No Mod Sed Physical Exam Physical Exam Pre Procedural Exam: Normal: Appearance, Lungs, Heart Rhythm, Neuro Exam, Abdomen, Extremities and Skin Hours since solid foods: 12 Hours since liquid intake: 8 Mallampati Classification: class III Internal Medicine - PN: Obj Da Vital Signs Vital Signs: Vital Signs - 24 hr 06/09/23 14:35 06/09/23 14:48 06/09/23 15:04 Temperature 37.0 C Pulse Rate 89 78 72 Respiratory Rate 20 20 14 Blood Pressure 154/87 H Pulse Oximetry 98 98 Oxygen Delivery 06/09/23 15:05 06/09/23 15:16 06/09/23 16:52 Temperature Pulse Rate 78 79 81 Respiratory Rate 18 21 H Blood Pressure 135/93 H 144/87 H Pulse Oximetry 96 96 Oxygen Delivery 06/09/23 15:21 06/09/23 15:33 06/09/23 15:55 Temperature Pulse Rate 81 75 79 Respiratory Rate 21 H 23 H 21 H Blood Pressure Pulse Oximetry 94 96 94 Oxygen Delivery 06/09/23 16:01 06/09/23 16:02 06/09/23 16:15 Temperature Pulse Rate 82 87 85 Respiratory Rate 19 24 H 24 H Blood Pressure 147/81 H Pulse Oximetry 96 95 96 Oxygen Delivery 06/09/23 16:16 06/09/23 16:17 06/09/23 17:07 Temperature Pulse Rate 81 82 81
--- NOTE | 2023-06-10 14:01 | WPDCARDPROC ---
Cardiac Cath Procedure Note Date of procedure:: 06/10/23 Performing physician:: CATHETERIZATION LABORATORY REPORT Procedure Date: 06/10/2023 End Finder Forming Department: Estrada Iqbal M.D., [facility]? Referring Physician: Dr. Syd Kee Anesthesia: Versed and Fentanyl were ordered and given in my presence at 12:49, procedure ended at 13:42. Supervision of nurse monitored moderate sedation with Versed and Fentanyl was provided for 53 minutes. Total of Versed 1mg, Fentanyl 50mcg, Morphine 1mg were administered by the Nutritionist RN Radha Gomez. Pre-op Diagnosis: NSTEMI Post-op Diagnosis: Significant 99% stenosis in the mid LAD s/p successful IVUS-guided PCI with AGNES x 1 in the proximal-mid LAD (4.0mm x 22mm AGNES). Procedure(s): 1. Moderate sedation 2. Ultrasound-guided access of the right radial artery 3. Coronary angiography 4. IVUS of the LAD 5. PCI of the proximal-mid LAD with AGNES x 1 Access Site: Right radial artery Brief History and Clinical Indications: Patient is a 53 year old male with tobacco abuse who is referred for [facility] for NSTEMI. All risks, benefits and alternatives to left heart catheterization with or without percutaneous coronary intervention was discussed at length with the patient. Risk of complications including but not limited to bleeding, infection, arrhythmia, stroke, worsening kidney function, blood loss, groin hematoma, limb loss, emergency coronary artery bypass grafting, and even were discussed with the patient and all questions were answered. The patient understood and wished to proceed. Time out called, patient name, date of , medical record number, allergies, procedure performed, identify End Finder Forming Department, patient and staff member concurred with accurate data, procedure carried on. Findings: LEFT HEART CATHETERIZATION FINDINGS: 1. Left main: The left main coronary artery is widely patent without any significant obstructive disease. 2. Left anterior descending: The mid LAD has a 99% stenosis. There is a moderate stenosis in the mid-distal portion. 3. Ramus: Mild diffuse disease. 4. Left circumflex: The left circumflex artery has luminal irregularities. OM-1 is a small caliber branch with mild-moderate disease in the mid portion. Remainder of OM branches have luminal irregularities. LCX is a co-dominant vessel. 5. Right coronary artery: The RCA has mild diffuse disease without any significant obstructive angiographic disease. The RCA is co-dominant. Description of Procedure and PCI: Informed consent signed and placed in the chart. Patient transferred to slab stripper room. Prepped and draped in usual sterile fashion. 2% lidocaine injected subcutaneously in right wrist area. 22-gauge venipuncture catheter used to access the right radial artery under ultrasound guidance. 6-FR slender sheath placed in right radial artery. Nitroglycerine and Verapamil were given intraarterial through the sheath. Versacore wire advanced under fluoroscopy 5F Tig 4 diagnostic catheter engaged Left Main Coronary Artery. 5F Tig 4 diagnostic catheter engaged Right Coronary Artery Multiple orthogonal angiogram obtained and reviewed Hemostasis was achieved by application of TR band. Angiomax used for anticoagulation. 6F CLS 3.0 guide catheter was used to intubate the LM. 0.014 [place] coronary wire was passed in to the distal LAD. The lesion was pre-dilated with a 2.5mm x 15mm balloon inflated to high ROSEANN. Multiple balloon inflations done. IVUS catheter advanced distal to the lesion and reference measurements obtained. A 4.0mm x 22mm Orsiro AGNES was successfully deployed into proximal-mid LAD. Follow-up angiograms showed an excellent result Coronary wire and guide-catheter were removed No angiographic complications identified. Post Operative Condition: Stable No significant blood loss Disposition: Floor Plan: The patient will be monitored in the recovery area. DAPT for 1 year followed by ASA indefinitely. Hig
--- NOTE | 2023-06-10 14:07 | ECG_ITS ---
Measurements Intervals [place] Rate: 63 P: 59 WV: 159 QRS: 56 QRSD: 100 T: 0 QT: 367 QTc: 378 Interpretive Statements SINUS RHYTHM MODERATE ST DEPRESSION [0.05+ mV ST DEPRESSION] ABNORMAL ECG COMPARED TO ECG 06/09/2023 20:47:20 NO SIGNIFICANT CHANGES Electronically Signed On 06-10-2023 16:06:02 AUDIO/VIDEO ENGINEER by Matthew Lopez M.D.
[2023-06-10] MEDS: NITROGLYCERIN OINTMENT 1 INCH DOSE TRANSDERM ×3 (15:02→23:50)
[2023-06-10] MEDS: BELLADONNA ALK/PHENOB ELIX 10 ML, MAG HYDROX/ALUMINUM HYD/SIMETH 30 ML, LIDOCAINE HCL 2... PO (15:03)
[2023-06-10] MEDS: PANTOPRAZOLE SODIUM IV 40 MG VIAL IV PUSH (15:05)
[2023-06-10] MEDS: SODIUM CHLORIDE 0.9% IV 1,000 ML 125 ML IV CONT (18:16)
[2023-06-10] MEDS: ACETAMINOPHEN 325 MG TABLET 650 MG PO (18:44)
--- NOTE | 2023-06-10 20:18 | ECG_ITS ---
Measurements Intervals [place] Rate: 62 P: 33 CO: 158 QRS: 40 QRSD: 110 T: 38 QT: 333 QTc: 340 Interpretive Statements SINUS RHYTHM POOR R-WAVE PROGRESSION ABNORMAL ECG COMPARED TO ECG 06/10/2023 14:09:20 NO SIGNIFICANT CHANGE Electronically Signed On 06-11-2023 17:35:20 TOWER TRUCK DRIVER by Jermaine Lares M.D.
[2023-06-10] MEDS: ATORVASTATIN 40 MG TABLET 80 MG PO (20:51)
[2023-06-10] MEDS: MORPHINE SULFATE (*CRX) 2 MG/ML INJ 1 MG IV PUSH (20:52)
[2023-06-11] VITALS (15 sets, daily range): BP systolic 116–136; BP diastolic 70–83; PULSE 69–97; RESP 16–20; TEMP 36.3–37.5; O2SAT 94–99
--- NOTE | 2023-06-11 | ECHO_ITS ---
Patient Info Name: Leighton Dior Age: 53 years : 1970 Gender: Male Ht: 71 in Wt: 220 lbs BSA: 2.26 m2 HR: 74 bpm BP: 121 / 70 mmHg Heart Rhythm: Sinus Rhythm Technical Quality: Good Exam Date: 06/11/2023 8:52 AM Exam Location: Echo Lab Patient Status: Inpatient Admit Date: 06/09/2023 Staff Ordering Physician: Syd Kee DO Agriculture Teacher: Nilson Martínez RDCS Attending Provider: Maribel Stevens MD Referring Physician: Chilango SIMPSON; Exam Type: CA echo limited w contrast Study Info Limited two-dimensional transthoracic echocardiogram is performed with contrast. Contrast/Agitated Saline Contrast/Ag. Saline: Definity Amount: 3.00 ml Summary 1. Limited echocardiogram to assess for wall motion abnormality. 2. Definity contrast administered improved wall motion interpretation. 3. Left ventricular chamber dimension is normal. 4. Left ventricular systolic function is normal, estimated at 60-65%. 5. There is moderate concentric increased left ventricular wall thickness. Left Ventricle Limited echocardiogram to assess for wall motion abnormality. Definity contrast administered improved wall motion interpretation. Diastolic function is not assessed. Left ventricular chamber dimension is normal. Left ventricular systolic function is normal, estimated at 60-65%. There is moderate concentric increased left ventricular wall thickness. Ventricles Name Value Normal LV Dimensions 2D/MM IVS Diastolic Thickness (2D) 1.4 cm 0.6-1.0 LVID Diastole (2D) 4.9 cm 4.2-5.8 LVIW Diastolic Thickness (2D) 1.4 cm 0.6-1.0 LVID Systole (2D) 3.2 cm 2.5-4.0 LV Mass (2D Cubed) 285.80 g 88.00-224.00 LV Mass Index (2D Cubed) 126 g/m2 49-115 Relative Wall Thickness (2D) 0.58 LV Fractional Shortening/Ejection Fraction 2D/MM LV Fractional Shortening (2D) 35 % 25-43 LV EF (2D Teicholz) 64 % 52-72 LV Diastolic Volume (4C MOD) 99 ml LV EF (4C MOD) 72 % LV Diastolic Volume (2C MOD) 86 ml LV EF (2C MOD) 56 % LV Diastolic Volume (BP MOD) 96 ml 62-150 LV Diastolic Volume Index (BP MOD) 42 ml/m2 34-74 LV Systolic Volume (BP MOD) 35 ml 21-61 LV Systolic Volume Index (BP MOD) 15 ml/m2 11-31 LV EF (BP MOD) 64 % 52-72 LV Diastolic Length (4C) 8.8 cm LV Systolic Length (4C) 7.9 cm LV Stroke Volume (4C MOD) 71 ml Report Signatures
[2023-06-11 04:02] LABS: Hematocrit 39.9 % (42.0-52.0); Hemoglobin 12.8 g/dL (14.0-18.0); Mean Corpuscular HGB Conc 32.1 g/dl (32-36); Mean Corpuscular Hemoglobin 27.1 pg (26-34); Mean Corpuscular Volume 84.4 fl (80-100); Mean Platelet Volume 9.6 fl (7.4-10.4); Platelet Count Result 278 k/mm3 (150-375); Red Blood Count 4.73 M/mm3 (4.6-6.20); Red Cell Distribution Width 13.3 % (11.5-14.5); White Blood Count 9.4 K/mm3 (4.5-10.0)
[2023-06-11 04:26] LABS: Anion Gap 4 mmol/L (8-16); Blood Urea Nitrogen 9 mg/dL (9-20); Calcium 8.9 mg/dL (8.4-10.2); Carbon Dioxide 27 mmol/L (22-30); Chloride 105 mmol/L (98-107); Estimated CRCL calculation 93 ml/min; Estimated Glomerular Filt Rate > 60; Glucose 92 mg/dL (65-110); Potassium 3.6 mmol/L (3.4-5.0); Sodium 136 mmol/L (137-145)
[2023-06-11] MEDS: ACETAMINOPHEN 325 MG TABLET 650 MG PO (05:04)
--- NOTE | 2023-06-11 08:01 | PM.PNCARD ---
Progress Note: A&P Assessment and Plan (1) Non-ST elevation [place] (NSTEMI): Code(s): I21.4 - Non-ST elevation (NSTEMI) myocardial infarction Status: Acute Assessment and Plan: Ongoing chest pain that is improving. Troponin peaked at 0.154 pre cath. Then post cath it went up to 27. 06/10/23 Echo: EF 60-65%, trace MR/TR. 06/10/23 Dr. Iqbal [facility]: mid LAD 99%, then mod stenosis in mid-distal, ramus with mild diffuse disease, LCx OM1 with mild-mod disease in mid portion, RCA with mild diffuse disease. PCI with AGNES to mid LAD with good results; small septal branch appears to have been pinched off. On aspirin, Plavix, Atorvastatin 80 mg daily and Metoprolol Tartate 12.5 mg BID. He reports Nitro and Morphine did not help his chest pains. Obtain limited echo to assess LV function. (2) Tobacco abuse: Code(s): Z72.0 - Tobacco use Status: Acute Assessment and Plan: Counseled regarding smoking cessation. (3) Dyslipidemia: Code(s): E78.5 - Hyperlipidemia, unspecified Status: Acute Assessment and Plan: On Atorvastatin 80 mg daily. (4) NSVT (nonsustained ventricular tachycardia): Code(s): I47.29 - Other ventricular tachycardia Status: Acute Assessment and Plan: 19 beat run of NSVT on 06/10/23 at 21:38. Increase Metoprolol Tartate 25 mg BID. Monitor for arrhythmias. Subjective Date/time seen: 06/11/23 08:01 Interval history: Had severe chest pain post cath. Now it is 1/10 chest pain. No sob. Exam Const: General: cooperative, healthy appearing and comfortable Orientation/consciousness: oriented to person, oriented to place and oriented to time Resp: Auscultation: clear to auscultation bilaterally, no crackles, no rales, no rhonchi and no wheezes Cardio: Rate: regular rate Rhythm: regular rhythm Heart sounds: no murmurs Peripheral pulses: dorsalis pedis present Neuro: General: oriented to person, oriented to place and oriented to time Extrem: Right lower extremity: no edema Left lower extremity: no edema Objective Data Vital Signs Vital Signs: Vital Signs - 24 hr 06/10/23 08:32 06/10/23 12:00 06/10/23 10:00 Temperature 97.3 F L Pulse Rate 74 73 78 Respiratory Rate 20 Blood Pressure 126/76 Pulse Oximetry 98 Oxygen Delivery 06/10/23 12:00 06/10/23 14:00 06/10/23 14:15 Temperature Pulse Rate 66 64 Respiratory Rate 18 12 Blood Pressure 145/72 H 138/78 Pulse Oximetry 98 95 95 Oxygen Delivery Room Air Room Air Room Air 06/10/23 12:00 06/10/23 14:30 06/10/23 14:45 Temperature Pulse Rate 74 72 70 Respiratory Rate 16 14 Blood Pressure 148/92 H 142/86 H Pulse Oximetry 100 98 Oxygen Delivery Room Air Room Air 06/10/23 15:00 06/10/23 15:15 06/10/23 15:30 Temperature Pulse Rate 68 71 75 Respiratory Rate 14 14 18 Blood Pressure 133/87 136/92 H 136/81 Pulse Oximetry 97 98 96 Oxygen Delivery Room Air Room Air Room Air 06/10/23 15:45 06/10/23 15:55 06/10/23 16:15 Temperature Pulse Rate 76 76 78 Respiratory Rate 20 20 20 Blood Pressure 136/87 131/80 140/77 Pulse Oximetry 98 97 95 Oxygen Delivery Room Air Room Air Room Air 06/10/23 16:35 06/10/23 16:50 06/10/23 17:05 Temperature Pulse Rate 71 83 76 Respiratory Rate 20 16 18 Blood Pressure 125/81 107/69 122/81 Pulse Oximetry 95 95 96 Oxygen Delivery Room Air Room Air Room Air 06/10/23 17:20 06/10/23 17:30 06/10/23 17:45 Temperature 98.6 F 98.5 F Pulse Rate 80 95 93 Respiratory Rate 20 16 16 Blood Pressure 117/69 128/79 131/78 Pulse Oximetry 97 98 98 Oxygen Delivery Room Air 06/10/23 18:00 06/10/23 18:00 06/10/23 20:00 Temperature 97.7 F 98.3 F Pulse Rate 68 84 65 Respiratory Rate 18 18 Blood Pressure 132/63 120/73 Pulse Oximetry 97 97 Oxygen Delivery 06/10/23 20:49 06/10/23 20:51 06/10/23 20:00 Temperature 99.0 F Pulse Rate 92 84 65 Respiratory Rate 20 Blood Pressure 117/77 Pulse Oximetr
[2023-06-11] MEDS: PERFLUTREN LIPID MICROSPHERES 1.5 ML VIAL DILUTED TO 10 ML TOTAL VOLUME IV PUSH (08:55)
[2023-06-11] MEDS: METOPROLOL TARTRATE 25 MG TABLET PO ×2 (09:26→20:15)
[2023-06-11] MEDS: NICOTINE (*PBKC) 21 MG PATCH 1 PATCH TRANSDERM (09:26)
[2023-06-11] MEDS: ASPIRIN 81 MG ENTERIC TABLET PO (09:26)
[2023-06-11] MEDS: CLOPIDOGREL BISULFATE 75 MG TABLET PO (09:26)
--- NOTE | 2023-06-11 10:46 | IVDEFINITY ---
Prior to administration of IV Definity the patient was educated on the risks and benefits of the imaging enhancing agent including potential adverse side effects. The patient verbalized understanding. Allergies were verified. No exclusion criteria were identified and at least one of the following inclusion criteria were met: 1) physician request, 2) patient technically difficult to image (per the [place] [employer]ocardi[employer] guidelines of two or more segments not discernable within the apical view), or 3) questionable left ventricular function. ?
--- NOTE | 2023-06-11 10:58 | PM.IMPN ---
Progress Note: A&P Assessment and Plan (1) NSVT (nonsustained ventricular tachycardia): Code(s): I47.29 - Other ventricular tachycardia Status: Acute (2) Dyslipidemia: Code(s): E78.5 - Hyperlipidemia, unspecified Status: Acute (3) Tobacco abuse: Code(s): Z72.0 - Tobacco use Status: Acute (4) Non-ST elevation [place] (NSTEMI): Code(s): I21.4 - Non-ST elevation (NSTEMI) myocardial infarction Status: Acute (5) Coronary artery disease: Code(s): I25.10 - Atherosclerotic heart disease of [place] coronary artery without angina pectoris Status: Acute Plan 53M w/ PMH tobacco abuse, gout, and dyslipidemia. Presented on 06/09/23 with midsternal chest pain with exertion. # NSTEMI/CAD - underwent PCI with Dr. Jaqui Iqbal on 06/10 with the following findings: 1. Left main: The left main coronary artery is widely patent without any significant obstructive disease. 2. Left anterior descending: The mid LAD has a 99% stenosis. There is a moderate stenosis in the mid-distal portion. 3. Ramus: Mild diffuse disease. 4. Left circumflex: The left circumflex artery has luminal irregularities. OM-1 is a small caliber branch with mild-moderate disease in the mid portion. Remainder of OM branches have luminal irregularities. LCX is a co-dominant vessel. 5. Right coronary artery: The RCA has mild diffuse disease without any significant obstructive angiographic disease. The RCA is co-dominant. - cont aspirin and plavix for 1 year, then aspirin. cont metoprolol and high dose statin - pending 2d echo to assess LV function - trop 27 post cath, repeat tomorrow AM - cardiac rehab on d/c # NSVT - metoprolol increased to 25mg po bid - cont tele and monitor. asymptomatic # tobacco abuse - counseled. cont nicotine patch FEN: saline lock IV, cardiac diet GI prophylaxis: none indicated DVT prophylaxis: SCD's Lines: pIV right antecubital fossa Code Status: full code Dispo: stable More than 35 minutes spent on chart review, patient interaction and assessment and plan. Subjective Date/time seen: 06/11/23 10:58 Interval history: naoe. the patient now has faint chest pain, much improved compared to post cath. he denies palpitations. Review of Systems Review of Systems: All systems reviewed & are unremarkable except as noted in HPI and below Exam Const: General: comfortable and no acute distress Eyes: Pupils: Equal, round and reactive pupils present Neck: Neck: supple Resp: Effort & Inspection: normal respiratory effort Auscultation: clear to auscultation bilaterally, no crackles, no rales and no rhonchi Cardio: Rate: regular rate Rhythm: regular rhythm Heart sounds: no gallops, no murmurs and no rubs GI: GI Palp: Yes Soft to palpation and No Tenderness to palpation present (GI) Extrem: General: no edema Other: no hematoma Objective Data Vital Signs Vital Signs: Vital Signs - 24 hr 06/10/23 12:00 06/10/23 12:00 06/10/23 14:00 Temperature 97.3 F L Pulse Rate 73 66 Respiratory Rate 20 18 Blood Pressure 126/76 145/72 H Pulse Oximetry 98 98 95 Oxygen Delivery Room Air Room Air 06/10/23 14:15 06/10/23 12:00 06/10/23 14:30 Temperature Pulse Rate 64 74 72 Respiratory Rate 12 16 Blood Pressure 138/78 148/92 H Pulse Oximetry 95 100 Oxygen Delivery Room Air Room Air 06/10/23 14:45 06/10/23 15:00 06/10/23 15:15 Temperature Pulse Rate 70 68 71 Respiratory Rate 14 14 14 Blood Pressure 142/86 H 133/87 136/92 H Pulse Oximetry 98 97 98 Oxygen Delivery Room Air Room Air Room Air 06/10/23 15:30 06/10/23 15:45 06/10/23 15:55 Temperature Pulse Rate 75 76 76 Respiratory Rate 18 20 20 Blood Pressure 136/81 136/87 131/80 Pulse Oximetry 96 98 97 Oxygen Delivery Room Air Room Air Room Air 06/10/23 16:15 06/10/23 16:35 06/10/23 16:50 Temperature Pulse Rate 78 71 83 Respiratory Rate 20 20 16 Blood Pressure 140/77 125/81 107/69 Pu
--- NOTE | 2023-06-11 11:49 | PC.NURSE ---
Pt continues to refuse nitro patch. Dr. Kee aware.
[2023-06-11] MEDS: ATORVASTATIN 40 MG TABLET 80 MG PO (20:15)
[2023-06-12] VITALS (7 sets, daily range): BP systolic 115–121; BP diastolic 67–76; PULSE 72–94; RESP 16–18; TEMP 36.1–36.4; O2SAT 94–97
[2023-06-12 05:28] LABS: Hemoglobin 14.8 g/dL (14.0-18.0); Mean Corpuscular HGB Conc 31.5 g/dl (32-36); Mean Corpuscular Hemoglobin 27.4 pg (26-34); Mean Platelet Volume 9.2 fl (7.4-10.4); Platelet Count Result 270 k/mm3 (150-375); Red Cell Distribution Width 13.4 % (11.5-14.5); White Blood Count 8.2 K/mm3 (4.5-10.0)
[2023-06-12 05:46] LABS: Anion Gap 10 mmol/L (8-16); Blood Urea Nitrogen 11 mg/dL (9-20); Calcium 9.6 mg/dL (8.4-10.2); Carbon Dioxide 24 mmol/L (22-30); Chloride 105 mmol/L (98-107); Estimated CRCL calculation 92 ml/min; Estimated Glomerular Filt Rate > 60; Glucose 116 mg/dL (65-110); Magnesium 2.2 mg/dL (1.6-2.3); Potassium 4.3 mmol/L (3.4-5.0); Sodium 139 mmol/L (137-145)
--- NOTE | 2023-06-12 07:47 | PM.PNCARD ---
Progress Note: A&P Assessment and Plan (1) Non-ST elevation CT (NSTEMI): Code(s): I21.4 - Non-ST elevation (NSTEMI) myocardial infarction Status: Acute Assessment and Plan: Ongoing chest pain that is improving. Troponin peaked at 0.154 pre cath. Then post cath it went up and peaked at 27. 06/10/23 Echo: EF 60-65%, trace MR/TR. 06/10/23 Dr. Iqbal [facility]: mid LAD 99%, then mod stenosis in mid-distal, ramus with mild diffuse disease, LCx OM1 with mild-mod disease in mid portion, RCA with mild diffuse disease. PCI with AGNES to mid LAD with good results; small septal branch appears to have been pinched off. On aspirin, Plavix, Atorvastatin 80 mg daily and Metoprolol Tartate 12.5 mg BID. He reports Nitro and Morphine did not help his chest pains post cath. Limited echo to assess LV function on 06/11/23 shows normal LV function with no wall motion abnormalities. Continue cardiac medication especially dual antiplatelets uninterrupted. May d/c home from cardiology standpoint and f/u with me in 1 week. (2) Tobacco abuse: Code(s): Z72.0 - Tobacco use Status: Acute Assessment and Plan: Counseled regarding smoking cessation. (3) Dyslipidemia: Code(s): E78.5 - Hyperlipidemia, unspecified Status: Acute Assessment and Plan: On Atorvastatin 80 mg daily. (4) NSVT (nonsustained ventricular tachycardia): Code(s): I47.29 - Other ventricular tachycardia Status: Acute Assessment and Plan: Resolved. 19 beat run of NSVT on 06/10/23 at 21:38. Increased Metoprolol Tartate 25 mg BID. Subjective Date/time seen: 06/12/23 07:47 Interval history: No more chest pain since yesterday. No sob. Exam Const: General: cooperative, healthy appearing and comfortable Orientation/consciousness: oriented to person, oriented to place and oriented to time Resp: Auscultation: clear to auscultation bilaterally, no crackles, no rales, no rhonchi and no wheezes Cardio: Rate: regular rate Rhythm: regular rhythm Heart sounds: no murmurs Peripheral pulses: dorsalis pedis present Neuro: General: oriented to person, oriented to place and oriented to time Extrem: Right lower extremity: no edema Left lower extremity: no edema Objective Data Vital Signs Vital Signs: Vital Signs - 24 hr 06/11/23 08:00 06/11/23 09:26 06/11/23 08:00 Temperature 97.4 F L Pulse Rate 94 84 97 Respiratory Rate 18 Blood Pressure 136/82 Pulse Oximetry 96 Oxygen Delivery 06/11/23 10:00 06/11/23 08:00 06/11/23 11:46 Temperature Pulse Rate 82 Respiratory Rate Blood Pressure Pulse Oximetry Oxygen Delivery Room Air Room Air 06/11/23 11:48 06/11/23 12:00 06/11/23 14:00 Temperature 97.3 F L Pulse Rate 69 70 89 Respiratory Rate 20 Blood Pressure 121/81 Pulse Oximetry 99 Oxygen Delivery 06/11/23 16:00 06/11/23 16:00 06/11/23 16:00 Temperature 98.1 F Pulse Rate 88 83 Respiratory Rate 16 Blood Pressure 131/83 Pulse Oximetry 97 Oxygen Delivery Room Air 06/11/23 18:00 06/11/23 20:00 06/11/23 20:15 Temperature 98.2 F Pulse Rate 81 96 78 Respiratory Rate 16 Blood Pressure 133/79 Pulse Oximetry 94 Oxygen Delivery 06/11/23 20:00 06/11/23 20:00 06/11/23 21:10 Temperature Pulse Rate 82 82 74 Respiratory Rate 16 Blood Pressure Pulse Oximetry 94 Oxygen Delivery Room Air 06/12/23 00:25 06/12/23 00:00 06/12/23 00:00 Temperature 97.6 F Pulse Rate 77 76 76 Respiratory Rate 16 16 Blood Pressure 119/67 Pulse Oximetry 94 94 Oxygen Delivery Room Air 06/12/23 04:57 06/12/23 02:00 06/12/23 04:00 Temperature 97.6 F Pulse Rate 84 72 76 Respiratory Rate 16 Blood Pressure 115/72 Pulse Oximetry 96 Oxygen Delivery 06/12/23 04:00 06/12/23 05:38 Temperature Pulse Rate 76 80 Respiratory Rate 16 Blood Pressure Pulse Oximetry 96 Oxygen Delivery Room Air Intake/Output Intak
--- NOTE | 2023-06-12 08:15 | PM.DS ---
DS: Admitting Diagnosis Discharge Date 06/12/23 Admitting Diagnosis chest pain DS: Discharge Diagnosis Discharge Diagnosis (1) History of percutaneous coronary intervention: Code(s): Z98.61 - Coronary angioplasty status Status: Acute (2) Coronary artery disease: Code(s): I25.10 - Atherosclerotic heart disease of [place] coronary artery without angina pectoris Status: Acute (3) NSVT (nonsustained ventricular tachycardia): Code(s): I47.29 - Other ventricular tachycardia Status: Acute (4) Dyslipidemia: Code(s): E78.5 - Hyperlipidemia, unspecified Status: Acute (5) Tobacco abuse: Code(s): Z72.0 - Tobacco use Status: Acute (6) Non-ST elevation [place] (NSTEMI): Code(s): I21.4 - Non-ST elevation (NSTEMI) myocardial infarction Status: Acute DS: Summary Hospital Course Hospital Course: 53M w/ PMH tobacco abuse, gout, dyslipidemia presented with chest pain with exertion for 3 days. It was midsternal and relieved with rest with radiated down to b/l arms. The patient was dx with NSTEMI and uderwent cardiac cath on 06/10/[address] Estrada Iqbal with the following findings and intervention: 1. Left main: The left main coronary artery is widely patent without any significant obstructive disease. 2. Left anterior descending: The mid LAD has a 99% stenosis. There is a moderate stenosis in the mid-distal portion. 3. Ramus: Mild diffuse disease. 4. Left circumflex: The left circumflex artery has luminal irregularities. OM-1 is a small caliber branch with mild-moderate disease in the mid portion. Remainder of OM branches have luminal irregularities. LCX is a co-dominant vessel. 5. Right coronary artery: The RCA has mild diffuse disease without any significant obstructive angiographic disease. The RCA is co-dominant. PCI with AGNES to mid LAD without complication completed. The patient is now placed on baby aspirin, plavix, lipitor, metoprolol, and nicotine patch (smoking cessation counseling provided and pt agreed to quit.) He is stable for discharge on 06/12/23 and asymptomatic. He gave me permission to disclose his health information on his [place] papers which I completed for him. He is not to return to work until clearance by cardiology, and he will follow up with Dr. Kee in a week. Lastly, the patient is referred to cardiac rehab. More than 30 minutes spent on discharge planning and documentation. Time Spent with Patient Time attestation: Total time spent providing and/or coordinating discharge services: Exam Const: General: cooperative and no acute distress Resp: Effort & Inspection: normal respiratory effort Auscultation: clear to auscultation bilaterally Cardio: Rate: regular rate Rhythm: regular rhythm Heart sounds: S1 normal heart sound present and S2 normal heart sound present GI: GI Palp: No abdominal tenderness Auscultation: normal bowel sounds DS: Data Data Completed and Pending Labs on day of discharge: Labs from last 24 hours 06/12/23 06/12/23 05:13 05:12 WBC 8.2 RBC 5.40 Hgb 14.8 Hct 47.0 MCV 87.0 MCH 27.4 MCHC 31.5 L RDW 13.4 Plt Count 270 MPV 9.2 Sodium 139 Potassium 4.3 Chloride 105 Carbon Dioxide 24 Anion Gap 10 BUN 11 Creatinine 1.00 Estim Creat Clear Calc 92 Estimated GFR > 60 Glucose 116 H Hemoglobin A1c 6.0 H Calcium 9.6 Magnesium 2.2 Troponin I 9.450 H* Discharge Plan Discharge Attending physician on discharge: Lillie Muhammad Consulting providers: Jacoby Friedman; Syd Kee; Matthew Lopez Discharging Clinician: Lillie Muhammad Patient Disposition: Home, Self-Care Activity: october shower Diet: heart healthy Patient Instructions: Chest Pain (DC) Stand Alone Forms: General Discharge Information Follow-up/Referrals: Syd Kee DO [Physician] - 1 Week Ann,Gera Singh MD [Primary Care Provider] - 2 Weeks Discharge Medicat
[2023-06-12] MEDS: NICOTINE (*PBKC) 21 MG PATCH 1 PATCH TRANSDERM (08:34)
== END 2023-06-12 09:18 | disposition home or self-care (01) | DRG 322 ==
LOC: ANHED 16:30 → ANHIMU 17:57
PROVIDERS: Emergency Medicine; Internal Medicine; Internal Medicine Cardiovascular Disease; Student in an Organized Health Care Education/Training Program; Admitting Provider Hospitalist; Emergency Provider Nurse Practitioner Family; PCP Family Medicine Sports Medicine; Visit Provider General Practice
PROC: (CPT 93454; principal; 2023-06-10 12:30)
DX: I21.4 Non-ST elevation (NSTEMI) myocardial infarction (principal); I47.29 Other ventricular tachycardia; I25.10 Atherosclerotic heart disease of native coronary artery without angina pectoris; E78.5 Hyperlipidemia, unspecified; F17.210 Nicotine dependence, cigarettes, uncomplicated; Z82.49 Family history of ischemic heart disease and other diseases of the circulatory system
CPT/HCPCS: 36415; 71046; 80048; 80053; 80061; 83036; 83690; 83735; 83880; 84484; 85025; 85027; 85380; 85610; 85730; 92978; 93005; 93306; 93308; 93454; 96365; 99285; A9270; C1725; C1753; C1769; C1874; C1887; C1894; C8924; C9113; C9600; J0583; J1644; J2250; J2270; J2305; J3010; J7030; J7040; Q9957

== ENCOUNTER 2023-06-14 19:27 | Inpatient (IN) | payer BC, SELFPAY ==
[2023-06-14] VITALS (7 sets, daily range): BP systolic 130–163; BP diastolic 79–101; PULSE 74–88; RESP 15–20; TEMP 36.7–36.8; O2SAT 97–100; BMI 30.9
--- NOTE | ~2023-06-14 | XR_ITS ---
XR chest 2V 06/14/2023 20:03 Indication: Chest pain Procedure: PA and lateral views of the chest Comparison: 06/09/2023 Findings: Heart size normal. No focal air space disease, pulmonary edema, pleural effusion or suspect ed pneumothorax. No acute osseous abnormality. Impression: 1: No acute cardiopulmonary disease. Reviewed, dictated and finalized at location A. TER Impression: 1: No acute cardiopulmonary disease.
--- NOTE | 2023-06-14 19:28 | ECG_ITS ---
Measurements Intervals [place] Rate: 73 P: 53 OR: 138 QRS: 62 QRSD: 101 T: 90 QT: 346 QTc: 383 Interpretive Statements SINUS RHYTHM COMPARED TO ECG 06/10/2023 21:44:[address] CHANGES HAVE IMPROVED BUT RHERE IS SLIGHT t WAVE INVERSION IN AVl AND NONSPECIFIC ST CHANGES ANTERIORLY Electronically Signed On 06-15-2023 13:41:18 COUNTER STACKER by Tea Jimenez M.D.
[2023-06-14 19:48] LABS: Basophils Percent Auto 0.2 % (0.2-1.2); Eosinophils Absolute Auto 0.3 K/mm3 (0-0.3); Hematocrit 42.4 % (42.0-52.0); Hemoglobin 13.6 g/dL (14.0-18.0); Immature Granulocyte Absolute 0.02 K/mm3 (0.00-0.031); Immature Granulocyte Percent A 0.2 % (0-0.5); Lymphocytes Absolute Auto 3.24 K/mm3 (0.9-3.2); Lymphocytes Percent Auto 39.1 % (18.3-44.2); Mean Corpuscular HGB Conc 32.1 g/dl (32-36); Mean Corpuscular Hemoglobin 27.4 pg (26-34); Mean Corpuscular Volume 85.5 fl (80-100); Mean Platelet Volume 9.3 fl (7.4-10.4); Monocytes Absolute Auto 0.9 K/mm3 (0.1-0.6); Monocytes Percent Auto 10.5 % (2.6-8.5); Neutrophils Absolute Auto 3.9 K/mm3 (1.3-6.7); Platelet Count Result 305 k/mm3 (150-375); Red Blood Count 4.96 M/mm3 (4.6-6.20); Red Cell Distribution Width 13.2 % (11.5-14.5); White Blood Count 8.3 K/mm3 (4.5-10.0)
[2023-06-14 19:57] LABS: Prothrombin Time 13.5 Seconds (11.1-14.7)
[2023-06-14] MEDS: NITROGLYCERIN SL 0.4 MG TABLET (19:57)
[2023-06-14 19:59] LABS: Partial Thromboplastin Time 30.4 SECONDS (22.3-36.8)
[2023-06-14 20:04] LABS: Alanine Aminotransferase 47 U/L (6-50); Albumin Level 4.6 g/dL (3.5-5.1); Alkaline Phosphatase 116 U/L (38-126); Anion Gap 11 mmol/L (8-16); Aspartate Amino Transferase 48 U/L (17-59); Bilirubin,Total 0.4 mg/dL (0.2-1.3); Blood Urea Nitrogen 15 mg/dL (9-20); Calcium 9.8 mg/dL (8.4-10.2); Carbon Dioxide 27 mmol/L (22-30); Chloride 102 mmol/L (98-107); Estimated CRCL calculation 72 ml/min; Estimated Glomerular Filt Rate 58; Glucose 100 mg/dL (65-110); Lipase 56 U/L (23-300); Sodium 140 mmol/L (137-145)
--- NOTE | 2023-06-14 20:24 | ED.CHESTPAIN ---
HPI - Chest Pain General Chief Complaint: Chest Pain Stated Complaint: cp Time Seen by Provider: 06/14/23 19:49 History of Present Illness HPI narrative: Patient is a 53-year-old male who presents ER with central chest pain. Began 30 minutes prior to arrival. It feels similar to his previous chest pain that resulted in him having a stent to his LAD. He was discharged 4 days ago. Denies any exertional chest discomfort or shortness of breath over the last few days. Reports he has been taking it easy and has been compliant with his home medication. Patient has not taken any nitroglycerin though it did help him when he was hospitalized last time. Related Data Allergies Allergy/AdvReac Type Severity Reaction Status Date / Time No Known Allergies Allergy Verified 06/14/23 19:39 Review of Systems Review of Systems: All systems reviewed & are unremarkable except as noted in HPI and below Constitutional: Constitutional: Reports no additional constitutional complaints ENT: Reports system reviewed and no additional complaints, except as documented Cardiovascular: Cardiovascular: Reports chest pain, Denies rapid heart rate and Reports radiating jaw, neck or arm pain Respiratory: Respiratory: Reports no additional respiratory complaints Gastrointestinal: Gastrointestinal: Reports no additional gastrointestinal complaints Genitourinary: Genitourinary: Reports no additional male genitourinary complaints Musculoskeletal: Musculoskeletal: Reports no additional musculoskeletal complaints [facility] Past Medical History Medical History (Updated 06/14/23 @ 20:54 by Matthias Cintron MD) Coronary artery disease Dyslipidemia Gout Pyelonephritis Surgical History Surgical History (Updated 06/12/23 @ 08:13 by Lillie Muhammad MD) History of percutaneous coronary intervention No history of previous surgery Family History Family History Father Acute myocardial infarction - due to [place] at age 40 Social History Social History Smoking packs per day: 1 Smoking cigarettes per day: 20.0 Years smoked: 30 Smoking pack-years: 30.00 Smoking status: Current every day smoker Tobacco type: cigarettes Alcohol intake: never Alcohol use details: very occasional, 3-4 times per year. Substance use: never Substance use type: does not use Do You Feel Safe in your Home?: Yes Lack of Transportation: No Lack of Food: Never True Current Housing: I Have Housing Concerned About Future Housing: No Difficulty Paying Gas/Electric Bills: No Difficulty Paying for Meds: No Currently Unemployed: No Education: Bachelor's Degree Difficulty w/ Childcare or Family Care: No Spiritual care concerns: No Exam Narrative: GENERAL: Anxious-appearing, well-nourished, and in no acute distress. HEAD: Normocephalic, atraumatic. ENT: Mucous membranes moist. NECK: Supple. CHEST: Clear to auscultation. No respiratory distress. HEART: Regular rate and rhythm. No murmur heard. Normal peripheral pulses. ABDOMEN: Soft, nontender, nondistended. EXTREMITIES: Normal range of motion. No edema. SKIN: Warm, dry, no rash. NEURO: Alert and oriented x3. PSYCH: Normal mood and affect. Course Course Emergency Course: Chest pain 10/10 and has decreased to 2/10 after nitroglycerin x2. Repeat EKG unchanged. Discussed case with Dr. 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 Recommends a dose of Lovenox and nitropaste in case patient is having spasm. Recommend admission for observation and trending of troponins. Vital Signs Vital signs: Vital Signs Temperature 98.2 F 06/14/23 19:36 Pulse Rate 76 06/14/23 19:36 Respiratory Rate 20 06/14/23 19:36 Blood Pressure 150/87 H 06/14/23 19:36 Pulse Oximetry 100 06/14/23 19:36 Oxygen Delivery Room Air
--- NOTE | 2023-06-14 20:30 | ECG_ITS ---
Measurements Intervals [place] Rate: 90 P: 51 WI: 158 QRS: 55 QRSD: 112 T: 88 QT: 350 QTc: 429 Interpretive Statements SINUS RHYTHM MODERATE INTRAVENTRICULAR CONDUCTION DELAY [110+ ms QRS DURATION] NONSPECIFIC T-WAVE ABNORMALITY COMPARED TO ECG 06/14/2023 19:33:19 INTRAVENTRICULAR CONDUCTION DELAY NOW PRESENT T-WAVE ABNORMALITY NOW PRESENT Electronically Signed On 06-15-2023 13:44:02 [employer]GING [employer] LEVER TENDER by Tea Jimenez M.D.
[2023-06-14] MEDS: ASPIRIN 81 MG CHEWABLE TABLET 324 MG PO (20:36)
[2023-06-14] MEDS: NITROGLYCERIN OINTMENT 1 INCH DOSE TRANSDERM (20:47)
[2023-06-14] MEDS: ENOXAPARIN 100 MG/ML SYRINGE SUB-Q (21:17)
--- NOTE | 2023-06-14 22:46 | ADMGEN ---
This patient, Leighton Dior, was admitted to IMU Room 210-01. Patient/family oriented to hospital policies and general routines including ID bracelet, bed and alarms, visiting hours, pain management, procedures, bathroom and other care routines, personal items, smoking policy, room service/diet, and visiting hours. Information on how to activate the Rapid Response Team has been discussed. Patient/Family are encouraged to report perceived risks to care and to ask questions if they do not understand what they are told or what they should do.
[2023-06-15] VITALS (19 sets, daily range): BP systolic 118–137; BP diastolic 62–83; PULSE 67–84; RESP 16–18; TEMP 36.2–36.9; O2SAT 94–100
--- NOTE | 2023-06-15 | ECHO_ITS ---
Patient Info Name: Leighton Dior Age: 53 years : 1970 Gender: Male Ht: 71 in Wt: 163 lbs BSA: 1.92 m2 HR: 78 bpm BP: 123 / 62 mmHg Heart Rhythm: Sinus Rhythm Technical Quality: Good Exam Date: 06/15/2023 12:33 PM Exam Location: Echo Lab Patient Status: Inpatient Admit Date: 06/14/2023 Staff Ordering Physician: Tea Jimenez MD Federal Law Clerk: Francisca Adkins RDCS Attending Provider: Ida Tao DO Referring Physician: Tony CARRREA; Exam Type: CA echo limited w contrast Study Info Indications - check lv fxn, r/o pericardial effusion Limited two-dimensional transthoracic echocardiogram is performed with contrast. Contrast/Agitated Saline Contrast/Ag. Saline: Definity Amount: 2.00 ml Administered By: Francisca Adkins RDCS Existing IV Access: Yes IV Access Condition: patent with no signs of infiltration Summary 1. Limited echo study. 2. Normal left ventricular size with mild hypertrophy. Severe hypokinesis of the distal septum, distal anterior wall and apex. Overall ejection fraction 60-65%. 3. No pericardial effusion. 4. Somewhat technically difficult, definity echo contrast used. 5. Normal sinus rhythm. Left Ventricle Left ventricular chamber dimension is normal. Left ventricular systolic function is mildly reduced, estimated at 60-65%. There is mildly increased left ventricular wall thickness. Left ventricular septal wall motion is normal. The left ventricular diastolic function is indeterminate. Right Ventricle Right ventricular chamber dimension is normal. Right ventricular systolic function is normal. Left Atria Left atrial chamber dimension is normal. Right Atria Right atrial chamber dimension is normal. Aortic Valve The aortic valve is not well visualized. There is no aortic valve sclerosis. There is no aortic valve stenosis. There is no aortic valve regurgitation. Pulmonic Valve The pulmonic valve is not well visualized. There is no pulmonic valve stenosis. There is no pulmonic regurgitation. Mitral Valve The mitral valve has normal leaflets. There is no mitral valve stenosis. There is no mitral valve regurgitation. Tricuspid Valve The tricuspid valve leaflets are normal. There is no significant tricuspid valve stenosis. There is no tricuspid valve regurgitation. No pulmonary hypertension, estimated pulmonary arterial systolic pressure is Empty. Pericardium/Pleural The pericardium appears normal. There is no pericardial effusion. Inferior Vena Cava Not well visualized inferior vena cava with >50% collapse upon inspiration consistent with Empty right atrial pressure, Empty. Aorta The aortic root size at the sinus of Valsalva is normal. The prox ascending aorta size is not well visualized. The aorta arch size is not well visualized measuring Empty. The abdominal aorta size is not well visualized. Ventricles Name Value Normal LV Dimensions 2D/MM IVS Diastolic Thickness (2D) 1.3 cm 0.6-1.0 LVID Diastole (2D) 4.7 cm 4.2-5.8 LVIW Diastolic Thickness (2D) 1.3 cm 0.6-1.0 LVID Systole (2D) 2.9 cm 2.5-4.0 LV Mass (2D Cubed) 235.05 g 88.00-224.00 LV Mass Index (2D Cubed)
[2023-06-15] MEDS: NITROGLYCERIN OINTMENT 1 INCH DOSE TRANSDERM ×5 (04:13→20:48)
--- NOTE | 2023-06-15 04:22 | ECG_ITS ---
Measurements Intervals [place] Rate: 60 P: -4 [place]: 173 QRS: -57 QRSD: 125 T: 116 QT: 400 QTc: 400 Interpretive Statements SINUS RHYTHM POSSIBLE LEAD PLACEMENT VERSUS NEW LEFT ANTERIOR FASCICULAR BLOCK [QRS AXIS <= -45, QR IN I, RS IN II] LEFT VENTRICULAR HYPERTROPHY AND ST-T CHANGE [VOLTAGE CRITERIA PLUS ST/T ABNORMALITY] COMPARED TO ECG 06/14/2023 20:43:54 NEW T-WAVE CHANGES LATERALLY LEFT ANTERIOR FASCICULAR BLOCK NOW PRESENT LEFT VENTRICULAR HYPERTROPHY NOW PRESENT ST (T WAVE) DEVIATION NOW PRESENT Electronically Signed On 06-15-2023 13:51:17 CHIEF SPECIALIST LEED by Tea Jimenez M.D.
--- NOTE | 2023-06-15 04:23 | PM.IMHP ---
H&P: HPI History of Present Illness Date/Time: 06/15/23 03:45 Chief Complaint: Chest pain Narrative: 53-year-old male with past medical history of coronary artery disease with recent cardiac catheterization 06/10/2023 with stent placement, family history premature coronary disease, tobacco abuse, essential hypertension, mixed hyperlipidemia and obesity who presented to the ER via private vehicle for recurrent chest pain. Patient was initially admitted 06/09/2023 for chest pain and underwent cardiac catheterization 06/10/2023. He had 99% stenosis of the LAD with moderate stenosis of the mid distal portion of the LAD with mild diffuse disease of the ramus with mild to moderate disease of OM 1 branch of the left circ and mild diffuse disease of the RCA who had a 4 mm x 22 mm [employer] stent placed to the proximal to mid LAD. Post catheterization patient had worsening chest pain with a small septal branch that appeared to be occluded after the catheterization. Patient's troponins peaked around 25. Patient was discharged on aspirin, Plavix, atorvastatin and metoprolol on the . His chest pain recurred today while he was essentially at rest. Chest pain was substernal in nature and radiated to left arm. He asked his to drive him to the hospital. The pain was moderate to severe in intensity and cresendo type. On the drive to the hospital his pain intensified to a 10/10 in intensity. Initial EKG was unremarkable repeat EKG was similar 30 EKG demonstrated some slurring of the ST segment V1 to in 3 but was otherwise unremarkable. The 3rd EKG is when the patient had complete resolution of chest pain. Only the 1st and 3rd EKG were transmitted into the system due to technical difficulties in the ER. The patient denies any accompanying nausea, shortness breath, cough, congestion orthopnea or lower extremity swelling. He reports he has been compliant with all of his medications and had just taken his evening medications prior to onset of his chest pain. He was not discharged with a script for nitroglycerin. In the ER he was placed on transdermal nitroglycerin and given 4 mg dose of morphine. Patient had almost immediate relief in his chest pain. He did not have her recurrence of his chest pain until his nitropaste had reached the end of it is dosing interval. At that time his pain came back at a 2/10 in intensity. He reports that he has not smoked since the . He has been using nicotine patches. He does report snoring and fatigue. His does not report episodes of apnea or gasping. He reports no cough and increased breathing since quitting smoking. Review of Systems Review of Systems: 12 systems were reviewed with pertinent positives and negatives per HPI. Except as documented in the HPI, all other systems were reviewed and are negative. [facility] Past Medical History Medical History (Updated 06/15/23 @ 04:46 by Ida Tao DO) Coronary artery disease Gout Mixed hyperlipidemia Obesity (BMI 30.0-34.9) Pyelonephritis Surgical History Surgical History (Updated 06/15/23 @ 04:39 by Ida Tao DO) History of percutaneous coronary intervention 4 mm by 22 mm drug-eluting stent to the proximal to mid LAD Family History Family History Father Acute myocardial infarction - due to [place] at age 40 Mother Hypercholesteremia Social History Social History (Updated 06/15/23 @ 04:41 by Ida Tao DO) Social History: Code status: full code Surrogate decision maker: Smoking packs per day: 1 Smoking cigarettes per day: 20.0 Years smoked: 36 Smoking pack-years: 36.00 Smoking status: Former smoker Second hand tobacco smoke exposure: Yes Smoking end date: 06/09/23 Alcohol intake: current Drinks per week: 1 Alcohol use details: very occasional, 3-4 times per year. Substance use: never Substance use type: does not
[2023-06-15] MEDS: NICOTINE (*PBKC) 21 MG PATCH 1 PATCH TRANSDERM (08:47)
[2023-06-15] MEDS: CLOPIDOGREL BISULFATE 75 MG TABLET PO (08:48)
[2023-06-15] MEDS: ASPIRIN 81 MG ENTERIC TABLET PO (08:49)
[2023-06-15] MEDS: MORPHINE SULFATE (*CRX) 4 MG/ML INJ IV PUSH (08:50)
[2023-06-15] MEDS: METOPROLOL TARTRATE 25 MG TABLET PO ×2 (08:50→20:47)
--- NOTE | 2023-06-15 09:07 | PM.CNCAR ---
Assessment and Plan Assessment and plan (1) Chest pain: Code(s): R07.9 - Chest pain, unspecified Status: Acute Assessment and Plan: Patient returns with anginal-type chest discomfort, probably from myocardial ischemia. I am concerned that there may be a problem with the stent site or perhaps with reocclusion of the septal side branch, or less likely a new lesion elsewhere. Doubt aortic problems, doubt pericardial problems/rupture. EKGs do not show a STEMI but suggest some ischemia laterally. --increase nitrates --IV Lopressor x1 --increased p.o. beta-edgar --heparin drip --if patient remains stable, will plan on cardiac catheterization tomorrow. If he becomes unstable, cardiac catheterization today. --Limited Echo, check LV , r/o peric effusion (2) Non-ST elevation [place] (NSTEMI): Code(s): I21.4 - Non-ST elevation (NSTEMI) myocardial infarction Status: Acute Assessment and Plan: Recent non-STEMI, status post stent in the mid Left anterior descending, with stent jailing of the septal branch. Normal LV function. (3) Dyslipidemia: Code(s): E78.5 - Hyperlipidemia, unspecified Status: Acute Assessment and Plan: Continue atorvastatin History of Present Illness History of Present Illness Consult date/time: 06/15/23 09:07 Reason For Visit: NSTEMI Narrative: Leighton Dior is a 53 y.o. male whom I was asked to see at the request of Dr. Cintron for my advice and opinion regarding his chest pain and elevated troponins, in consultation. Mr. Augustine was admitted on 06/09/2023 with chest pain radiating down his arms, and his EKG showed slight ST depression in V3 through V6. He was diagnosed with a non-STEMI and seen by Dr. Kee. He underwent cardiac catheterization by Dr. Iqbal [id number]. This revealed a 99% mid Left anterior descending stenosis, mild diffuse disease of the ramus, mild to moderate disease of the OM 1 mild diffuse disease RCA which was co- dominant. A 4 mm drug-eluting stent was deployed in the proximal to mid Left anterior descending. Apparently he had prolonged in somewhat intense chest discomfort afterwards, but his EKG did not show any changes. Apparently thought to be due to occlusion of a septal side branch. Troponins prior to the heart catheterization were 0.13 and afterwards was 27, declining to 9.4 on discharge. The patient was discharged on 06/12/2023 feeling well. He had occasional twinges of chest discomfort but yesterday while sitting down he had the onset of intense chest discomfort radiating to his left arm. He came to the emergency room and was admitted. He was given some nitroglycerin paste and morphine as well as Lovenox with significant improvement. However through the night ease continued to have 2/10 chest discomfort, up to 4 added 10 this morning, back to 2/10 after dose of morphine. He has been compliant with his medications and did quit smoking, using the nicotine patches. 03/13/2023 troponin 9.4 03/15/2023 troponins: 2.18, 1.75, 1.8 10/13/2022 EKG at 7:33 p.m.: NSR slight T-wave inversion aVL, questionable ST change in V1 and V2. 06/14/2023 EKG at 10:43 p.m.: NSR, poor R-wave progression 06/15/2023 EKG at 4:37 a.m.: Possible lead misplacement due to tall R-wave in V1 and new left axis deviation, slight T-wave inversion V1 and V2. 06/14/2023 EKG at 9:40 a.m.: NSR rate 63, mild T-wave inversion in 1, aVL and some slight T-wave changes in V4 and V5. These EKGs were personally reviewed as were his EKGs on his prior admission. Chest x-ray: No acute cardiopulmonary disease (personally reviewed, agree) 06/11/2023 echo: EF 60-65%, normal LV function, moderate LVH Personally reviewed the patient's cath films. Very tight mid Left anterior descending stenosis. There was occlusion of the 2nd septal, which was a medium small branch, at conclusion of the procedure, but the Left anterior descending itself, and the ramus had angiographically gr
--- NOTE | 2023-06-15 09:17 | ECG_ITS ---
Measurements Intervals [place] Rate: 63 P: 33 IN: 163 QRS: 27 QRSD: 121 T: 120 QT: 385 QTc: 396 Interpretive Statements SINUS RHYTHM MODERATE INTRAVENTRICULAR CONDUCTION DELAY [110+ ms QRS DURATION] ST DEVIATION AND MODERATE T-WAVE ABNORMALITY, CONSIDER ANTEROLATERAL ISCHEMIA [-0.1+ mV T WAVE IN V3-V6] COMPARED TO ECG 06/15/2023 04:37:18 THE PREVIOUSLY NOTED LEFT ANTERIOR FASCICULAR BLOCK HAS RESOLVED, SO LIKELY IT WAS RELATED TO LEAD PLACEMENT Electronically Signed On 06-15-2023 13:53:52 STATE FEDERAL RELATIONS DEPUTY DIRECTOR by Tea Jimenez M.D.
[2023-06-15] MEDS: HEPARIN SODIUM 5,000 UNITS/ML VIAL 4000 UNITS IV PUSH ×2 (10:27→17:08)
[2023-06-15] MEDS: METOPROLOL TARTRATE INJ 5 MG/5 ML VIAL IV PUSH (10:32)
[2023-06-15] MEDS: HEPARIN SOD/D5W 100 UNITS/ML 25,000 UNITS/250 ML BAG 10 UNITS IV CONT (10:36)
[2023-06-15 11:30] LABS: Basophils Percent Auto 0.4 % (0.2-1.2); Eosinophils Absolute Auto 0.2 K/mm3 (0-0.3); Eosinophils Percent Auto 2.2 % (0-4.4); Hemoglobin 12.8 g/dL (14.0-18.0); Immature Granulocyte Absolute 0.02 K/mm3 (0.00-0.031); Immature Granulocyte Percent A 0.2 % (0-0.5); Lymphocytes Percent Auto 32.8 % (18.3-44.2); Mean Corpuscular Hemoglobin 27.4 pg (26-34); Mean Corpuscular Volume 85.5 fl (80-100); Mean Platelet Volume 9.5 fl (7.4-10.4); Monocytes Absolute Auto 0.7 K/mm3 (0.1-0.6); Monocytes Percent Auto 7.3 % (2.6-8.5); Neutrophils Absolute Auto 5.6 K/mm3 (1.3-6.7); Neutrophils Percent Auto 57.1 % (45.5-73.1); Platelet Count Result 275 k/mm3 (150-375); Red Blood Count 4.68 M/mm3 (4.6-6.20); Red Cell Distribution Width 13.2 % (11.5-14.5); White Blood Count 9.8 K/mm3 (4.5-10.0)
[2023-06-15] MEDS: PERFLUTREN LIPID MICROSPHERES 1.5 ML VIAL DILUTED TO 10 ML TOTAL VOLUME IV PUSH (12:39)
[2023-06-15] MEDS: HYDROcodone/acetaminophen (*CRX) 5-325 MG TABLET 1 TAB PO ×2 (14:00→18:05)
--- NOTE | 2023-06-15 14:25 | IVDEFINITY ---
Prior to administration of IV Definity the patient was educated on the risks and benefits of the imaging enhancing agent including potential adverse side effects. The patient verbalized understanding. Allergies were verified. No exclusion criteria were identified and at least one of the following inclusion criteria were met: 1) physician request, 2) patient technically difficult to image (per the [place] [employer]chocardi[employer] guidelines of two or more segments not discernable within the apical view), or 3) questionable left ventricular function. ?
--- NOTE | 2023-06-15 14:47 | PM.IMPN ---
Progress Note: A&P Assessment and Plan (1) Non-ST elevation [place] (NSTEMI): Code(s): I21.4 - Non-ST elevation (NSTEMI) myocardial infarction Status: Acute Assessment and Plan: Patient presented 06/09 with complaints of chest pain and found to have NSTEMI. Troponin peaked at 27.2. LHC showing mid-LAD 9% stenosis and moderate stenosis in the mid-distal portion LAD. He underwent PCI and AGNES placement to the LAD. Medical management started. He was discharged on 06/12. Patient returns for chest pain. He has been compliant with his home medications. Troponin on admission was 2.2. EKG showing normal sinus rhythm and inferior ST changes. Troponin was trending down but slightly higher on 3rd troponin. Patient has been given a dose of therapeutic Lovenox, full-dose aspirin and NTP. He was continued on dual anti-platelet therapy. Patient is already on high-intensity statin that was continued. Patient with recurrence of chest pain. Consider pericarditis, in-stent thrombus or myocarditis. Heparin drip started. NTP continued. Echo ordered. Cardiology consulted and appreciate their input. Possible [facility] tomorrow. (2) Coronary artery disease: Qualifiers: Coronary Disease-Associated Artery/Lesion type: [place] artery [place] vs. transplanted heart: [place] heart Associated angina: with unstable angina Qualified Code(s): I25.110 - Atherosclerotic heart disease of [place] coronary artery with unstable angina pectoris Code(s): I25.10 - Atherosclerotic heart disease of [place] coronary artery without angina pectoris Status: Acute Assessment and Plan: As above. Recent PCI with AGNES in mid-LAD 99% lesion. Medical [facility] (3) Dyslipidemia: Code(s): E78.5 - Hyperlipidemia, unspecified Status: Acute Assessment and Plan: LFTs okay. Continue Lipitor. (4) Tobacco abuse: Code(s): Z72.0 - Tobacco use Status: Acute Assessment and Plan: Patient was congratulated on stopping smoking. He was encouraged to remain tobacco free. Plan DVT prophylaxis - heparin gtt Code status - full Subjective Date/time seen: 06/15/23 14:47 Interval history: 53yo male with CAD and recent LAD drug-eluding stent placement here for chest pain. Pain is much better after some of the medication adjustments. No radiation. No n/v. No palpable pain. Feels like presure. Quit tobacco 1 week ago. Exam Narrative: AF 97.7 123/62 73 18 94% ra Gen - NARD Chest - CTA bilaterally, nml RR CV - RRR S1/S2. Tele showing no significant dysrhthmias Abd - Soft, NT/ND, Positive BS Ext - No pedal edema Psych - Nml mood and affect Skin - Warm and dry Objective Data Vital Signs Vital Signs: Vital Signs - 24 hr 06/14/23 19:36 06/14/23 19:56 06/14/23 20:18 Temperature 98.2 F Pulse Rate 76 74 Respiratory Rate 20 15 Blood Pressure 150/87 H 163/101 H Pulse Oximetry 100 100 97 Oxygen Delivery Room Air Room Air 06/14/23 20:19 06/14/23 21:18 06/14/23 22:03 Temperature Pulse Rate 81 79 88 Respiratory Rate 15 15 Blood Pressure 150/89 H 130/90 Pulse Oximetry 97 97 Oxygen Delivery 06/14/23 22:31 06/15/23 00:00 06/15/23 00:00 Temperature 98.0 F Pulse Rate 78 69 Respiratory Rate 18 Blood Pressure 135/79 Pulse Oximetry 97 Oxygen Delivery Room Air 06/15/23 02:00 06/15/23 04:13 06/15/23 04:00 Temperature 97.7 F Pulse Rate 68 74 Respiratory Rate 18 Blood Pressure 134/77 Pulse Oximetry 98 Oxygen Delivery Room Air 06/15/23 04:00 06/15/23 06:00 06/15/23 08:00 Temperature 97.2 F L Pulse Rate 72 67 70 Respiratory Rate 16 Blood Pressure 133/83 Pulse Oximetry 98 Oxygen Delivery 06/15/23 08:50 06/15/23 10:32 06/15/23 12:00 Temperature 97.7 F Pulse Rate 73 72 81 Respiratory Rate 18 Blood Pressure 123/62 Pulse Oximetry 94 Oxygen Delivery 06/15/23 08:20 06/15/23 10:00 06/15/23 12:00 Temper
[2023-06-15 16:59] LABS: Partial Thromboplastin Time 49.4 SECONDS (22.3-36.8)
[2023-06-15] MEDS: ATORVASTATIN 40 MG TABLET 80 MG PO (20:47)
[2023-06-15 23:48] LABS: Partial Thromboplastin Time 77.9 SECONDS (22.3-36.8)
[2023-06-15] MEDS: ACETAMINOPHEN 325 MG TABLET 650 MG PO (23:59)
[2023-06-16] VITALS (25 sets, daily range): BP systolic 108–136; BP diastolic 68–98; PULSE 63–85; RESP 14–19; TEMP 36.2–36.6; O2SAT 94–98
[2023-06-16] MEDS: NITROGLYCERIN OINTMENT 1 INCH DOSE TRANSDERM ×4 (01:43→17:04)
[2023-06-16 05:24] LABS: Basophils Percent Auto 0.5 % (0.2-1.2); Eosinophils Absolute Auto 0.3 K/mm3 (0-0.3); Eosinophils Percent Auto 2.9 % (0-4.4); Hematocrit 39.4 % (42.0-52.0); Hemoglobin 12.7 g/dL (14.0-18.0); Immature Granulocyte Absolute 0.03 K/mm3 (0.00-0.031); Immature Granulocyte Percent A 0.4 % (0-0.5); Lymphocytes Absolute Auto 3.36 K/mm3 (0.9-3.2); Lymphocytes Percent Auto 39.4 % (18.3-44.2); Mean Corpuscular HGB Conc 32.2 g/dl (32-36); Mean Corpuscular Hemoglobin 27.5 pg (26-34); Mean Corpuscular Volume 85.3 fl (80-100); Mean Platelet Volume 9.3 fl (7.4-10.4); Monocytes Absolute Auto 0.8 K/mm3 (0.1-0.6); Monocytes Percent Auto 8.8 % (2.6-8.5); Neutrophils Absolute Auto 4.1 K/mm3 (1.3-6.7); Platelet Count Result 290 k/mm3 (150-375); Red Blood Count 4.62 M/mm3 (4.6-6.20); Red Cell Distribution Width 13.2 % (11.5-14.5); White Blood Count 8.5 K/mm3 (4.5-10.0)
[2023-06-16 05:34] LABS: Alanine Aminotransferase 34 U/L (6-50); Albumin Level 3.9 g/dL (3.5-5.1); Alkaline Phosphatase 128 U/L (38-126); Anion Gap 7 mmol/L (8-16); Aspartate Amino Transferase 43 U/L (17-59); Bilirubin,Total 0.3 mg/dL (0.2-1.3); Blood Urea Nitrogen 13 mg/dL (9-20); Calcium 8.6 mg/dL (8.4-10.2); Carbon Dioxide 26 mmol/L (22-30); Chloride 105 mmol/L (98-107); Estimated CRCL calculation 93 ml/min; Estimated Glomerular Filt Rate > 60; Glucose 103 mg/dL (65-110); Magnesium 2.1 mg/dL (1.6-2.3); Potassium 3.9 mmol/L (3.4-5.0); Sodium 138 mmol/L (137-145)
[2023-06-16 05:37] LABS: Partial Thromboplastin Time 69.3 SECONDS (22.3-36.8)
[2023-06-16] MEDS: HEPARIN SODIUM 5,000 UNITS/ML VIAL 3500 UNITS IV PUSH (06:38)
[2023-06-16] MEDS: HEPARIN SOD/D5W 100 UNITS/ML 25,000 UNITS/250 ML BAG 15 UNITS IV CONT (06:45)
--- NOTE | 2023-06-16 08:00 | ECG_ITS ---
Measurements Intervals [place] Rate: 61 P: 45 [place]: 158 QRS: 57 QRSD: 117 T: 118 QT: 347 QTc: 352 Interpretive Statements SINUS RHYTHM WITH SINUS ARRHYTHMIA MODERATE INTRAVENTRICULAR CONDUCTION DELAY [110+ ms QRS DURATION] MODERATE T-WAVE ABNORMALITY, CONSIDER LATERAL ISCHEMIA [-0.1+ mV T WAVE IN I/aVL/V5/V6] COMPARED TO ECG 06/15/2023 09:40:20 SINUS ARRHYTHMIA NOW PRESENT Electronically Signed On 06-16-2023 15:57:58 TOWN MANAGER by Estrada Iqbal M.D.
[2023-06-16] MEDS: ASPIRIN 81 MG ENTERIC TABLET PO (08:31)
[2023-06-16] MEDS: METOPROLOL TARTRATE 25 MG TABLET PO (08:31)
[2023-06-16] MEDS: CLOPIDOGREL BISULFATE 75 MG TABLET PO (08:32)
[2023-06-16] MEDS: NICOTINE (*PBKC) 21 MG PATCH 1 PATCH TRANSDERM (08:32)
--- NOTE | 2023-06-16 09:08 | WPDMODSED ---
Moderate Sedation Note-Pt Data Patient Data Diagnosis: NSTEMI Present Complaint: NSTEMI Procedure to be performed/Plan: Coronary angiography, left heart cath, +/- PCI Allergies Allergy/AdvReac Type Severity Reaction Status Date / Time No Known Allergies Allergy Verified 06/14/23 19:39 Home Medications Medication Instructions Recorded Confirmed Type aspirin 81 mg tablet,delayed 81 mg PO QAM #90 tabs 06/12/23 06/14/23 Rx release clopidogrel 75 mg tablet 75 mg PO QAM #90 tabs 06/12/23 06/14/23 Rx metoprolol tartrate 25 mg tablet 25 mg PO Q12HR #180 tabs 06/12/23 06/14/23 Rx nicotine 21 mg/24 hr daily 1 patch transdermal DAILY #30 ea 06/12/23 06/14/23 Rx transdermal patch (Nicoderm CQ) acetaminophen 325 mg tablet 650 mg QID PRN Pain 06/14/23 06/14/23 History (Tylenol) atorvastatin 40 mg tablet 80 mg PO QAM 06/14/23 06/14/23 History Current Medications: Active Medications Acetaminophen (Acetaminophen 325 Mg Tablet) 650 mg PO QID PRN PRN Reason: Pain 1-3 or fever Last Admin: 06/15/23 23:59 Dose: 650 mg Hydrocodone Bitart/Acetaminophen (Hydrocodone/Acetaminophen (*Crx) 5-325 Mg Tablet) 1 tab PO Q4H PRN PRN Reason: Pain Rated 4-6 Last Admin: 06/15/23 18:05 Dose: 1 tab Aspirin (Aspirin 81 Mg Enteric Tablet) 81 mg PO QAM [facility] Last Admin: 06/16/23 08:31 Dose: 81 mg Atorvastatin Calcium (Atorvastatin 40 Mg Tablet) 80 mg PO [facility] Last Admin: 06/15/23 20:47 Dose: 80 mg Clopidogrel Bisulfate (Clopidogrel Bisulfate 75 Mg Tablet) 75 mg PO QAM [facility] Last Admin: 06/16/23 08:32 Dose: 75 mg Heparin Sodium (Porcine) (Heparin Sodium 5,000 Units/Ml Vial) 4,000 units IV PUSH PRN PRN PRN Reason: aPTT less than 55 seconds Last Admin: 06/15/23 17:08 Dose: 4,000 units Heparin Sodium (Porcine) (Heparin Sodium 5,000 Units/Ml Vial) 3,500 units IV PUSH PRN PRN PRN Reason: aPTT 55 - 70 seconds Last Admin: 06/16/23 06:38 Dose: 3,500 units Heparin Sodium/Dextrose (Heparin Sodium/D5w 100 Units/Ml) 25,000 units in 250 mls @ 15 mls/hr IV CONT .[id number] [facility]; Protocol Last Admin: 06/16/23 06:45 Dose: 1,500 units/hr, 15 mls/hr Metoprolol Tartrate (Metoprolol Tartrate 25 Mg Tablet) 25 mg PO Q12HR [facility] Last Admin: 06/16/23 08:31 Dose: 25 mg Morphine Sulfate (Morphine Sulfate (*Crx) 4 Mg/Ml Inj) 4 mg IV PUSH Q2H PRN PRN Reason: Intractable chest pain Last Admin: 06/15/23 08:50 Dose: 4 mg Nicotine (Nicotine (*Pbkc) 21 Mg Patch) 1 patch TRANSDERM DAILY [facility] Last Admin: 06/16/23 08:32 Dose: 1 patch Nitroglycerin (Nitroglycerin Sl 0.4 Mg Tablet) 0.4 mg SUBLINGUAL Q5MIN PRN PRN Reason: Chest Pain Nitroglycerin (Nitroglycerin Ointment 1 Inch Dose) 1 inch TRANSDERM Q4H [facility] Last Admin: 06/16/23 06:38 Dose: 1 inch Ondansetron HCl (Ondansetron Inj 4 Mg/2 Ml Vial) 4 mg IV PUSH Q4H PRN PRN Reason: Nausea Sedation/Anesthesia: No previous sedation/anesthesia problems (including family history). [facility] Past Medical History Medical History Coronary artery disease Gout Mixed hyperlipidemia Obesity (BMI 30.0-34.9) Pyelonephritis Surgical History Surgical History History of percutaneous coronary intervention 4 mm by 22 mm drug-eluting stent to the proximal to mid LAD Family History Family History Father Acute myocardial infarction - due to [place] at age 40 Mother Hypercholesteremia Social History Social History Social History: Code status: full code Surrogate decision maker: Smoking packs per day: 1 Smoking cigarettes per day: 20.0 Years smoked: 36 Smoking pack-years: 36.00 Smoking status: Former smoker Second hand tobacco smoke exposure: Yes Smoking end date: 06/09/23 Alcohol intake: current Drinks per week: 1 Alcohol use
--- NOTE | 2023-06-16 09:09 | WPDCARDPROC ---
Cardiac Cath Procedure Note Date of procedure:: 06/16/23 Performing physician:: CATHETERIZATION LABORATORY REPORT Procedure Date: 06/16/2026 Development Assistant: Estrada Iqbal M.D., [facility]? Referring Physician: Tea Jimenez M.D.? Anesthesia: Versed and Fentanyl were ordered and given in my presence at 09:18, procedure ended at 10:38 Supervision of nurse monitored moderate sedation with Versed and Fentanyl was provided for 80 minutes. Total of Versed 3mg and Fentanyl 100mcg were administered by the Refrigeration Technician RACHAEL Arguello. Pre-op Diagnosis: NSTEMI, Coronary artery disease Post-op Diagnosis: Patent stent in the proximal to mid LAD, however, at the distal stent edge, there is what appears to be a likely dissection that has extended down into the mid LAD and then there is complete occlusion in the mid LAD with no flow to the distal LAD. There are some left to left collaterals filling the apical LAD. Attempted to wire the LAD, but unable to get wire into the true lumen of the LAD. Unable to re-establish flow in the LAD. Therefore, discussed patient's case with CT Surgery and will get patient transferred to [facility] for surgical evaluation for [place] to LAD. Procedure(s): 1. Moderate sedation 2. Ultrasound guided access of the right radial artery 3. Coronary angiography 4. Attempted coronary intervention of the LAD Access Site: Right radial artery Brief History and Clinical Indications: Patient is a 53 year old male who was admitted last week at [facility] for NSTEMI. Underwent AGNES x 1 to the proximal-mid LAD. Patient discharged on 06/12/2023. Patient had severe chest pain occurring on 06/15, which did resolve by yesterday afternoon. Given this, patient referred for cardiac catheterization today. All risks, benefits and alternatives to left heart catheterization with or without percutaneous coronary intervention was discussed at length with the patient. Risk of complications including but not limited to bleeding, infection, arrhythmia, stroke, worsening kidney function, blood loss, groin hematoma, limb loss, emergency coronary artery bypass grafting, and even were discussed with the patient and all questions were answered. The patient understood and wished to proceed. Time out called, patient name, date of , medical record number, allergies, procedure performed, identify Development Assistant, patient and staff member concurred with accurate data, procedure carried on. Findings: LEFT HEART CATHETERIZATION FINDINGS: 1. Left main: The left main coronary artery is widely patent without any significant obstructive disease. 2. Left anterior descending: Patent stent in the proximal to mid LAD, however, at the distal stent edge, there is what appears to be a likely dissection that has extended down into the mid LAD and then there is complete occlusion in the mid LAD with no flow to the distal LAD. There are some left to left collaterals filling the apical LAD. 3. Ramus: Mild diffuse disease. 4. Left circumflex: The left circumflex artery has luminal irregularities. OM-1 is a small caliber branch with mild-moderate disease in the mid portion. Remainder of OM branches have luminal irregularities. Angiographically unchanged compared to prior angiogram. 5. Right coronary artery: The RCA has mild diffuse disease without any significant obstructive angiographic disease, angiographically unchanged compared to prior angiogram. Description of Procedure: Informed consent signed and placed in the chart. Patient transferred to home performance laborer room. Prepped and draped in usual sterile fashion. 2% lidocaine injected subcutaneously in right wrist area. 22-gauge venipuncture catheter used to access the right radial artery under ultrasound guidance. 6-FR slender sheath placed in right radial artery. Nitroglycerine and Verapamil were given intraarterial through the sheath. Versacore wire advanced under fluoroscopy 5F Tig 4 diagnostic catheter engaged Lef
[2023-06-16 09:44] LABS: Free T4 Free Thyroxine Reflex 1.08 ng/dL (0.78-2.19)
--- NOTE | 2023-06-16 11:29 | PC.NURSE ---
This patient, Leighton Dior, was received from cardiac calibration laboratory technician on 06/16/23 at 1115. Patient/family oriented to unit policies and routines. Report received from Henna RN and Saundra CANO.
[2023-06-16] MEDS: SODIUM CHLORIDE 0.9% IV 1,000 ML 125 ML IV CONT (11:37)
[2023-06-16] MEDS: HYDROcodone/acetaminophen (*CRX) 5-325 MG TABLET 1 TAB PO (11:39)
--- NOTE | 2023-06-16 11:43 | WPDCNINT ---
Assessment and Plan Assessment and plan (1) Non-ST elevation GA (NSTEMI): Code(s): I21.4 - Non-ST elevation (NSTEMI) myocardial infarction Status: Acute Assessment and Plan: Patient presented to the ED on 06/14 with chest pain radiating to the left arm. Troponins were elevated. Patient was diagnosed with NSTEMI, was admitted the hospital. Treated with therapeutic Lovenox, nitroglycerin paste and morphine 06/16: patient was taken to builder's labourer. Patent stent in the proximal to mid LAD, there is likely a dissection that extends down into the mid LAD in the is complete occlusion in the mid LAD with no flow to the distal LAD. No intervention was performed, patient will be transferred to [facility] for 1 vessel CABG. Discussed with cardiology, patient be transferred to the ICU until he gets a bed at [facility]. -patient continues to have mild chest pain, will place nitro paste on him -patient on aspirin, statin, metoprolol -cardiology following closely 06/15 Limited echocardiogram 1. Limited echo study. ? 2. Normal left ventricular size with mild hypertrophy.? Severe hypokinesis of the distal septum, distal anterior wall and apex.? Overall ejection fraction 60-65%. ? 3. No pericardial effusion. ? 4. Somewhat technically difficult, definity echo contrast used. ? 5. Normal sinus rhythm. (2) Coronary artery disease: Qualifiers: Coronary Disease-Associated Artery/Lesion type: [place] artery [place] vs. transplanted heart: iroquois heart Associated angina: with unstable angina Qualified Code(s): I25.110 - Atherosclerotic heart disease of [place] coronary artery with unstable angina pectoris Code(s): I25.10 - Atherosclerotic heart disease of [place] coronary artery without angina pectoris Status: Acute Assessment and Plan: Patient was admitted on 06/09 with chest pain radiating down his arms, EKG showed slight ST depression V3 to V6. Diagnosed with non STEMI, underwent cardiac catheterization on 06/12 that revealed 99% mid LAD stenosis status post AGNES x1 to proximal to mid LAD. (3) Dyslipidemia: Code(s): E78.5 - Hyperlipidemia, unspecified Status: Acute Assessment and Plan: Continue statin Plan DVT prophylaxis: Status post cardiac catheterization Stress ulcer prophylaxis: Not indicated Nutrition: NPO Code Status: Full code Critical Care Time Spent: 44 minutes D/w Dr. Iqbal (Physician Anesthesiologist) Due to a high probability of clinically significant, life threatening deterioration, the patient required my highest level of preparedness to intervene emergently and I personally spent this critical care time directly and personally managing the patient. This critical care time included obtaining a history; examining the patient; pulse oximetry; ordering and review of studies; arranging urgent treatment with development of a management plan; evaluation of patient's response to treatment; frequent reassessment; and discussions with other providers. It was exclusive of separately billable procedures and treating other patients and teaching time. Please see Assessment and Plan section and the rest of the note for further information on patient assessment and treatment This dictation may have been done utilizing a voice recognition system. Attempts have been made to correct errors. However, there may be uncorrected grammatical, spelling, and recognitions errors present. Liquid Floor And Wall Applier Consult Note Consult date: 06/16/23 Reason for consult: Chest pain, NSTEMI HPI: Leighton Dior is a 53 year old male hospital history coronary artery disease status AGNES x1 to proximal-mid LAD on 06/10/2023, hyperlipidemia, pyelonephritis, gout presented the ED on 06/14/2023 complains of chest pain, elevated troponins and was admitted for NSTEMI. Patient was started on nitroglycerin paste car morphine, therapeutic Lovenox with improvement. Patient did continue to have chest pain on 06/15 and was given a
--- NOTE | 2023-06-16 11:51 | ECG_ITS ---
Measurements Intervals [place] Rate: 66 P: 50 WI: 175 QRS: 57 QRSD: 116 T: 110 QT: 349 QTc: 366 Interpretive Statements SINUS RHYTHM MODERATE INTRAVENTRICULAR CONDUCTION DELAY [110+ ms QRS DURATION] MODERATE T-WAVE ABNORMALITY, CONSIDER LATERAL ISCHEMIA [-0.1+ mV T WAVE IN I/aVL/V5/V6] COMPARED TO ECG 06/16/2023 08:08:40 NO SIGNIFICANT CHANGES Electronically Signed On 06-16-2023 16:06:13 TECTONOPHYSICIST by Estrada Iqbal M.D.
[2023-06-16 13:30] LABS: Partial Thromboplastin Time 56.4 SECONDS (22.3-36.8)
[2023-06-16] MEDS: ACETAMINOPHEN 325 MG TABLET 650 MG PO (14:07)
[2023-06-16 15:46] LABS: Total Triiodothyronine (T3) 1.28 NG/ML (0.97-1.69)
--- NOTE | 2023-06-16 17:20 | PM.TDS ---
Transfer Discharge Sum: Prov Provider Date of admission: 06/16/23 13:50 Primary care physician: Gera Juarez, Admitting clinician: Ida Tao DO Consults: 06/14/23 21:25 Consult to Physician Routine Comment: Consulting Provider: Tea Jimenez Reason for consultation: nstemi Has provider been notified: Yes DS: Admitting Diagnosis Discharge Date 06/16/23 Admitting Diagnosis Chest pain DS: Discharge Diagnosis Discharge Diagnosis (1) Non-ST elevation HI (NSTEMI): Code(s): I21.4 - Non-ST elevation (NSTEMI) myocardial infarction Status: Acute (2) Coronary artery disease: Qualifiers: Coronary Disease-Associated Artery/Lesion type: [place] artery [place] vs. 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 Status: Acute Transfer Discharge Sum: Med Medications Active and Home Medications: Home Medications aspirin 81 mg tablet,delayed release 81 mg PO QAM #90 tabs 06/12/23 [Rx Confirmed 06/14/23] clopidogrel 75 mg tablet 75 mg PO QAM #90 tabs 06/12/23 [Rx Confirmed 06/14/23] metoprolol tartrate 25 mg tablet 25 mg PO Q12HR #180 tabs 06/12/23 [Rx Confirmed 06/14/23] nicotine 21 mg/24 hr daily transdermal patch (Nicoderm CQ) 1 patch transdermal DAILY #30 ea 06/12/23 [Rx Confirmed 06/14/23] acetaminophen 325 mg tablet (Tylenol) 650 mg QID PRN Pain 06/14/23 [History Confirmed 06/14/23] atorvastatin 40 mg tablet 80 mg PO QAM 06/14/23 [History Confirmed 06/14/23] Active Medications Acetaminophen (Acetaminophen 325 Mg Tablet) 650 mg PO QID PRN PRN Reason: Pain 1-3 or fever Last Admin: 06/16/23 14:07 Dose: 650 mg Hydrocodone Bitart/Acetaminophen (Hydrocodone/Acetaminophen (*Crx) 5-325 Mg Tablet) 1 tab PO Q4H PRN PRN Reason: Pain Rated 4-6 Last Admin: 06/16/23 11:39 Dose: 1 tab Aspirin (Aspirin 81 Mg Enteric Tablet) 81 mg PO QAM [facility] Last Admin: 06/16/23 08:31 Dose: 81 mg Atorvastatin Calcium (Atorvastatin 40 Mg Tablet) 80 mg PO HS [facility] Last Admin: 06/15/23 20:47 Dose: 80 mg Heparin Sodium (Porcine) (Heparin Sodium 5,000 Units/Ml Vial) 4,000 units IV PUSH PRN PRN PRN Reason: aPTT less than 55 seconds Last Admin: 06/15/23 17:08 Dose: 4,000 units Heparin Sodium (Porcine) (Heparin Sodium 5,000 Units/Ml Vial) 3,500 units IV PUSH PRN PRN PRN Reason: aPTT 55 - 70 seconds Last Admin: 06/16/23 06:38 Dose: 3,500 units Heparin Sodium/Dextrose (Heparin Sodium/D5w 100 Units/Ml) 25,000 units in 250 mls @ 15 mls/hr IV CONT .[id number] [facility]; Protocol Last Admin: 06/16/23 06:45 Dose: 1,500 units/hr, 15 mls/hr Sodium Chloride (Normal Saline Iv) 1,000 mls @ 125 mls/hr IV CONT .Q8H ONE Stop: 06/16/23 18:56 Last Admin: 06/16/23 11:37 Dose: 125 mls/hr Metoprolol Tartrate (Metoprolol Tartrate 25 Mg Tablet) 25 mg PO Q12HR [facility] Last Admin: 06/16/23 08:31 Dose: 25 mg Morphine Sulfate (Morphine Sulfate (*Crx) 4 Mg/Ml Inj) 4 mg IV PUSH Q2H PRN PRN Reason: Intractable chest pain Last Admin: 06/15/23 08:50 Dose: 4 mg Nicotine (Nicotine (*Pbkc) 21 Mg Patch) 1 patch TRANSDERM DAILY [facility] Last Admin: 06/16/23 08:32 Dose: 1 patch Nitroglycerin (Nitroglycerin Sl 0.4 Mg Tablet) 0.4 mg SUBLINGUAL Q5MIN PRN PRN Reason: Chest Pain Nitroglycerin (Nitroglycerin Ointment 1 Inch Dose) 1 inch TRANSDERM Q4H S
== END 2023-06-16 19:05 | disposition short-term general hospital (02) | DRG 250 ==
LOC: ANHED 19:56 → ANHIMU 21:40 → ANHICU 06-16 11:08
PROVIDERS: Internal Medicine; Internal Medicine Cardiovascular Disease; Admitting Provider Internal Medicine; Emergency Provider Emergency Medicine; PCP Family Medicine Sports Medicine; Visit Provider Internal Medicine
PROC: 02703ZZ Dilation of Coronary Artery, One Artery, Percutaneous Approach (ICD-10-PCS; CPT 93454; principal; 2023-06-16 08:30)
PROC: 02703ZZ Dilation of Coronary Artery, One Artery, Percutaneous Approach (ICD-10-PCS; CPT 92920; 2023-06-16 08:30)
PROC: 02703ZZ Dilation of Coronary Artery, One Artery, Percutaneous Approach (ICD-10-PCS; 2023-06-16 08:30)
DX: I22.2 Subsequent non-ST elevation (NSTEMI) myocardial infarction (principal); I25.42 Coronary artery dissection; I21.4 Non-ST elevation (NSTEMI) myocardial infarction; I25.10 Atherosclerotic heart disease of native coronary artery without angina pectoris; E78.5 Hyperlipidemia, unspecified; M10.9 Gout, unspecified; Z82.49 Family history of ischemic heart disease and other diseases of the circulatory system; Z95.5 Presence of coronary angioplasty implant and graft; Z79.02 Long term (current) use of antithrombotics/antiplatelets; Z79.82 Long term (current) use of aspirin
CPT/HCPCS: 36415; 71046; 80053; 83690; 83735; 84439; 84443; 84480; 84484; 85025; 85610; 85730; 92920; 92978; 93005; 93308; 93454; 94762; 96372; 96374; 99285; A9270; C1725; C1753; C1769; C1887; C1894; C8924; G0378; J0583; J1644; J1650; J2250; J2270; J2305; J3010; J7030; J7040; Q9957